=== PATIENT | female | born 1940 | race Caucasian/White ===

== ENCOUNTER 2018-01-05 09:48 | Outpatient (CLI) | payer MEDICARE ==
[2018-01-05 10:08] LABS: BASOPHILS % (AUTO) 0.5 %; EOSINOPHILS % (AUTO) 0.6 %; HGB - HEMOGLOBIN 13.8 g/dL (12.0-16.0); LYMPHOCYTES # (AUTO) 2.2 10^3/uL (1.5-3.5); LYMPHOCYTES % (AUTO) 24.8 %; MEAN CORPUSCULAR HEMOGLOBIN 31.7 pg (27.0-31.0); MEAN CORPUSCULAR HGB CONC 33.7 g/dL (32.0-36.0); MEAN CORPUSCULAR VOLUME 93.8 fL (81.0-99.0); MEAN PLATELET VOLUME 7.7 fL (7.9-10.8); MONOCYTES # (AUTO) 0.7 10^3/uL (0.0-1.0); NEUTROPHILS # (AUTO) 5.8 10^3/uL (1.5-6.6); NEUTROPHILS % (AUTO) 66.1 %; PLT - PLATELET COUNT 270 10^3/uL (130-450); RED BLOOD COUNT 4.37 10^6/uL (4.20-5.40); RED CELL DISTRIBUTION WIDTH 13.5 % (12.0-15.0); WHITE BLOOD COUNT 8.7 x10^3/uL (4.8-10.8)
[2018-01-05 10:27] LABS: ALBUMIN 4.3 g/dL (3.2-5.5); ALBUMIN/GLOBULIN RATIO 1.2 (1.0-2.2); ALKALINE PHOSPHATASE 43 IU/L (42-121); ALT ALANINE AMINOTRANSFERASE 14 IU/L (10-60); AST ASPARTATE AMINOTRANSFERASE 20 IU/L (10-42); BILIRUBIN,TOTAL 0.8 mg/dL (0.2-1.0); BUN - BLOOD UREA NITROGEN 18 mg/dL (6-20); CALCIUM 9.5 mg/dL (8.5-10.3); CARBON DIOXIDE - CO2 29 mmol/L (21-32); CHLORIDE 102 mmol/L (101-111); CHOL/HDL RATIO 3.5 (<4.4); CHOLESTEROL 175 mg/dL; CREATININE 0.9 mg/dL (0.4-1.0); GFR - MDRD 60 (>89); GLUCOSE 106 mg/dL (70-100); HDL CHOLESTEROL 50 mg/dL; LDL CHOLESTEROL,CALCULATED 107 mg/dL; LDL/HDL RATIO 2.1 (<4.4); SODIUM 142 mmol/L (135-145); TOTAL PROTEIN 7.8 g/dL (6.7-8.2); VLDL CHOLESTEROL 18 mg/dL
== END 2018-01-05 09:49 | disposition home or self-care (01) ==
LOC: LAB 09:48
PROVIDERS: ATTEND Family Medicine
DX: I10 Essential (primary) hypertension (principal)
CPT/HCPCS: 36415; 80053; 80061; 83721; 85025

== ENCOUNTER 2018-01-16 08:47 | Outpatient (CLI) | payer MEDICARE ==
--- NOTE | 2018-01-19 12:06 | DEXA Report ---
DEXA SCAN: 01/16/2018 INDICATION: Screening. TECHNIQUE: Dual energy x-ray absorptiometry (DXA) was performed on a [employer] system. Regions measured are the AP spine, femoral neck, and, if needed, forearm. COMPARISON: None. In accordance with the International Society for Clinical Densitometry (ISCD) guidelines, data from previous exams may be reanalyzed using current recommendations and techniques. This is done to allow a more accurate basis for comparison with the current study. FINDINGS: The data for the hip is as follows: REGION BMD (g/cm/cm) T-SCORE Z-SCORE Neck 1.021 -0.1 1.3 TOTAL 1.012 0.0 1.2 NOTE: The femoral neck or total proximal femur, whichever is lowest, is used for classification. The data for the forearm is as follows: REGION BMD (g/cm/cm) T-SCORE Z-SCORE 1/3 0.875 0.0 2.6 TOTAL 0.592 -1.4 1.3 NOTE: The 33% radius of the nondominant forearm is used for classification. IMPRESSION: THE WHO CLASSIFICATION FOR THE FEMORAL NECK BASED ON THE INTERNATIONAL REFERENCE STANDARD IS NORMAL. THE WHO CLASSIFICATION FOR THE RADIUS BASED ON THE INTERNATIONAL REFERENCE STANDARD IS OSTEOPENIA. THE FRACTURE RISK IS INCREASED. RECOMMENDATION: Patients with diagnosis of osteoporosis or osteopenia should have regular bone mineral density assessment. For those eligible for Medicare, routine testing is allowed once every 2 years. Testing frequency can be increased for patients who have rapidly progressing disease or for those who are receiving medical therapy to restore bone mass. COMMENT: World Health Organization (WHO) definitions for osteoporosis and osteopenia: NORMAL BMD: T-score at 1.0 or higher, fracture risk is low. OSTEOPENIA BMD: T-score between 1.0 and -2.5, fracture risk is increased. OSTEOPOROSIS BMD: T-score at 2.5 or lower, fracture risk high. National Osteoporosis Foundation recommends: 1. Obtain adequate dietary calcium (at least 1200 mg per day) and vitamin D (400 -800 international units per day). 2. Participate, as appropriate, in regular weightbearing and muscle- strengthening exercise. 3. Avoid tobacco use and reduce alcohol and caffeine intake. 4. For more detailed information see the website at www.NOF.org. MTDD
== END 2018-01-16 08:48 | disposition home or self-care (01) ==
LOC: DI 08:47
PROVIDERS: ATTEND Family Medicine
DX: Z78.0 Asymptomatic menopausal state (principal); M85.89 Other specified disorders of bone density and structure, multiple sites
CPT/HCPCS: 77080; 77081

== ENCOUNTER 2018-05-27 08:00 | Outpatient (CLI) | payer MEDICARE ==
[2018-05-27 15:44] LABS: BILIRUBIN,URINE NEGATIVE (NEGATIVE); GLUCOSE, URINE (UA) NEGATIVE (NEGATIVE); KETONES,URINE (UA) NEGATIVE (NEGATIVE); LEUKOCYTE ESTERASE, URINE MODERATE (NEGATIVE); NITRITE,URINE POSITIVE (NEGATIVE); OCCULT BLOOD,URINE NEGATIVE (NEGATIVE); PH,URINE 5.5 PH (5.0-7.5); PROTEIN,URINE NEGATIVE (NEGATIVE); UROBILINOGEN,URINE 0.2 (NORMAL) E.U./dL (NORMAL)
[2018-05-27 15:55] LABS: BACTERIA,URINE Many /HPF (None Seen); CLARITY,URINE CLOUDY (CLEAR); SQUAMOUS EPITHELIAL CELL,UR FEW Squamous (<= Few); WBC CLUMPS,URINE PRESENT
== END 2018-05-27 08:01 ==
LOC: LAB.R 08:00
PROVIDERS: ATTEND Family Medicine
DX: R35.0 Frequency of micturition (principal)
CPT/HCPCS: 81001; 87086

== ENCOUNTER 2018-06-03 14:32 | Emergency (ER) | payer MEDICARE ==
--- NOTE | 2018-06-03 15:30 | ED Physician Documentation ---
History of Present Illness - Stated complaint Stated Complaint: FEMALE - Chief complaint Chief Complaint: UTI - Additonal information Additional information: hx from pt 77 f states she went to see PMD Dr Jensen last week to ask about starting a new alzheimers med her brother was taking Dr Jensen did a urine sample and dx UTI and put pt on sulfa then later changed to keflex pt had shaking this AM but no chills or fever no abd pain no NVD no dysuria Dr Jensen advised to come to the ED and family states i am to call Dr Jensen for reason/ instructions Review of Systems Constitutional: denies: Fever, Chills Cardiac: denies: Chest pain / pressure Respiratory: denies: Dyspnea GI: denies: Nausea, Vomiting, Diarrhea : denies: Dysuria Musculoskeletal: denies: Back pain Neurologic: reports: Other (shaking earlier). denies: Headache Endocrine: denies: Easy bruising / bleeding Immunocompromised: denies: Immunocompromised PD PAST MEDICAL HISTORY - Present Medications Home Medications: Ambulatory Orders Medication Instructions Recorded Confirmed Home Medications Unobtainable 06/03/18 06/03/18 [HOME MEDICATIONS UNOBTAINABLE] - Allergies Allergies/Adverse Reactions: Allergies Allergy/AdvReac Type Severity Reaction Status Date / Time No Known Drug Allergies Allergy Verified 06/03/18 14:44 PD ED PE NORMAL - Vitals Vital signs reviewed: Yes - Cardiac Cardiac: RRR - Respiratory Respiratory: No respiratory distress, Clear bilaterally - Abdomen Abdomen: Soft, Non tender - Back Back: No CVA TTP - Neuro Neuro: Alert and oriented X 3 Results - Vitals Vitals: Vital Signs - 24 hr 06/03/18 14:39 Temperature 36.6 C Heart Rate 93 Respiratory 18 Rate Blood Pressure 144/93 H O2 Saturation 97 Oxygen O2 Source Room air - Labs Labs: Laboratory Tests 06/03/18 06/03/18 06/03/18 15:55 16:15 16:15 WBC 9.7 RBC 4.25 Hgb 13.7 Hct 40.7 MCV 95.7 MCH 32.1 H MCHC 33.5 RDW 13.0 Plt Count 259 MPV 7.8 L Neut # (Auto) 6.8 H Lymph # (Auto) 1.8 [place] # (Auto) 0.9 Eos # (Auto) 0.0 Baso # (Auto) 0.0 Absolute Nucleated RBC 0.00 Nucleated RBC % 0.0 Sodium 133 L Potassium 2.8 L Chloride 95 L Carbon Dioxide 26 Anion Gap 12.0 BUN 20 Creatinine 1.5 H Estimated GFR (MDRD) 33 L Glucose 98 Calcium 9.7 Urine Color YELLOW Urine Clarity CLEAR Urine pH 6.0 Ur Specific [place] <=1.005 Urine Protein NEGATIVE Urine Glucose (UA) NEGATIVE Urine Ketones NEGATIVE Urine Occult Blood NEGATIVE Urine Nitrite NEGATIVE Urine Bilirubin NEGATIVE Urine Urobilinogen 0.2 (NORMAL) Ur Leukocyte Esterase NEGATIVE Ur Microscopic Review NOT INDICATED Urine Culture Comments NOT INDICATED PD MEDICAL DECISION MAKING - ED course ED course: called Dr Jensen - pt was more confused than baseline at office visit so she got a UA and UA + for e coli, first txed with bactrim and then sensitivities indicates resisatnt to bactrim and sens to keflex so she has been changed to keflex, today daughter called office nurse to report that pt was shaking so office was concerned she was having fevers and rigors and becoming septic so advised pt to come to the ER - Dr Jensen requests blood work and another UA renal insuff may be due to bactrim - no longer taking - will encourage fluids and recheck next week K repleted keflex working MSE performed UTI improving renal insuff safe to dc home will dc - Sepsis Event Vital Signs: Vital Signs - 24 hr 06/03/18 14:39 Temperature 36.6 C Heart Rate 93 Respiratory 18 Rate Blood Pressure 144/93 H O2 Saturation 97 Oxygen O2 Source Room air Departure - Departure Disposition: Home, Self Care Clinical Impression: Renal insufficiency, Hypokalemia Condition: Good Instructions: ED UTI Cystitis Female Follow-Up: Ethel Jensen DO [Primary Care Provider] - Comments: Your urine infection is doing better on the keflex - finish that medication as prescribed You have some renal insufficiency - it is difficult to know why could could be a side effect of the bactrim you were taking - drink plenty of fluids and have the level checked next week And your potassium was a little bit low and was replaced in the ER
[2018-06-03 16:11] LABS: BILIRUBIN,URINE NEGATIVE (NEGATIVE); GLUCOSE, URINE (UA) NEGATIVE (NEGATIVE); KETONES,URINE (UA) NEGATIVE (NEGATIVE); LEUKOCYTE ESTERASE, URINE NEGATIVE (NEGATIVE); NITRITE,URINE NEGATIVE (NEGATIVE); OCCULT BLOOD,URINE NEGATIVE (NEGATIVE); PROTEIN,URINE NEGATIVE (NEGATIVE); UROBILINOGEN,URINE 0.2 (NORMAL) E.U./dL (NORMAL)
[2018-06-03 16:20] LABS: CLARITY,URINE CLEAR (CLEAR)
[2018-06-03 16:32] LABS: BASOPHILS % (AUTO) 0.5 %; EOSINOPHILS % (AUTO) 0.3 %; HGB - HEMOGLOBIN 13.7 g/dL (12.0-16.0); LYMPHOCYTES # (AUTO) 1.8 10^3/uL (1.5-3.5); MEAN CORPUSCULAR HEMOGLOBIN 32.1 pg (27.0-31.0); MEAN CORPUSCULAR HGB CONC 33.5 g/dL (32.0-36.0); MEAN CORPUSCULAR VOLUME 95.7 fL (81.0-99.0); MEAN PLATELET VOLUME 7.8 fL (7.9-10.8); MONOCYTES # (AUTO) 0.9 10^3/uL (0.0-1.0); MONOCYTES % (AUTO) 9.8 %; NEUTROPHILS # (AUTO) 6.8 10^3/uL (1.5-6.6); NEUTROPHILS % (AUTO) 70.4 %; PLT - PLATELET COUNT 259 10^3/uL (130-450); RED BLOOD COUNT 4.25 10^6/uL (4.20-5.40); WHITE BLOOD COUNT 9.7 x10^3/uL (4.8-10.8)
[2018-06-03 16:37] LABS: CALCIUM 9.7 mg/dL (8.5-10.3); CREATININE 1.5 mg/dL (0.4-1.0)
[2018-06-03] MEDS ORDERED: POTASSIUM CHLORIDE 20 MEQ TABLET PO STA (16:39)
[2018-06-03 17:13] VITALS: BP 121/77
== END 2018-06-03 17:21 | disposition home or self-care (01) ==
LOC: ED 14:32
DX: N28.9 Disorder of kidney and ureter, unspecified (principal); E87.6 Hypokalemia; N39.0 Urinary tract infection, site not specified
CPT/HCPCS: 36415; 80048; 81003; 85025; 87040; 99283; A9270; 81001; 87086

== ENCOUNTER 2018-06-11 10:23 | Outpatient (CLI) | payer MEDICARE ==
[2018-06-11 13:42] LABS: CALCIUM 9.7 mg/dL (8.5-10.3); CREATININE 1.2 mg/dL (0.4-1.0)
== END 2018-06-11 10:24 | disposition home or self-care (01) ==
LOC: LAB.WCP 10:23
PROVIDERS: ATTEND Family Medicine
DX: I10 Essential (primary) hypertension (principal)
CPT/HCPCS: 36415; 80048

== ENCOUNTER 2018-10-19 08:00 | Outpatient (CLI) | payer MEDICARE | END 2018-10-19 23:59 | disposition home or self-care (01) | LOC: LAB.R 08:00 | PROVIDERS: ATTEND Physician Assistant Medical | DX: N39.0 Urinary tract infection, site not specified (principal) | CPT/HCPCS: 87086; 87181 ==

== ENCOUNTER 2018-11-25 08:00 | Outpatient (CLI) | payer MEDICARE ==
[2018-11-25 12:12] LABS: BASOPHILS % (AUTO) 0.3 %; EOSINOPHILS # (AUTO) 0.1 10^3/uL (0.0-0.7); HGB - HEMOGLOBIN 13.3 g/dL (12.0-16.0); LYMPHOCYTES # (AUTO) 2.1 10^3/uL (1.5-3.5); LYMPHOCYTES % (AUTO) 24.1 %; MEAN CORPUSCULAR HEMOGLOBIN 31.9 pg (27.0-31.0); MEAN CORPUSCULAR HGB CONC 33.3 g/dL (32.0-36.0); MEAN CORPUSCULAR VOLUME 95.7 fL (81.0-99.0); MEAN PLATELET VOLUME 8.7 fL (7.9-10.8); MONOCYTES # (AUTO) 0.8 10^3/uL (0.0-1.0); MONOCYTES % (AUTO) 9.9 %; NEUTROPHILS # (AUTO) 5.5 10^3/uL (1.5-6.6); NEUTROPHILS % (AUTO) 64.7 %; PLT - PLATELET COUNT 269 10^3/uL (130-450); RED BLOOD COUNT 4.15 10^6/uL (4.20-5.40); RED CELL DISTRIBUTION WIDTH 12.9 % (12.0-15.0); WHITE BLOOD COUNT 8.5 x10^3/uL (4.8-10.8)
[2018-11-25 12:35] LABS: ALBUMIN 4.3 g/dL (3.2-5.5); ALBUMIN/GLOBULIN RATIO 1.3 (1.0-2.2); BILIRUBIN,TOTAL 0.6 mg/dL (0.2-1.0); CALCIUM 9.6 mg/dL (8.5-10.3); CREATININE 1.1 mg/dL (0.4-1.0); TOTAL PROTEIN 7.6 g/dL (6.7-8.2)
[2018-11-25 12:50] LABS: THYROID STIMULATING HORMONE 2.13 uIU/mL (0.34-5.60)
[2018-11-25 19:29] LABS: BILIRUBIN,URINE NEGATIVE (NEGATIVE); GLUCOSE, URINE (UA) NEGATIVE (NEGATIVE); KETONES,URINE (UA) NEGATIVE (NEGATIVE); LEUKOCYTE ESTERASE, URINE TRACE (NEGATIVE); NITRITE,URINE NEGATIVE (NEGATIVE); OCCULT BLOOD,URINE NEGATIVE (NEGATIVE); PH,URINE 6.5 PH (5.0-7.5); PROTEIN,URINE NEGATIVE (NEGATIVE); UROBILINOGEN,URINE 0.2 (NORMAL) E.U./dL (NORMAL)
[2018-11-25 20:09] LABS: AMORPHOUS SEDIMENT,UR Few /LPF; BACTERIA,URINE None Seen /HPF (None Seen); CLARITY,URINE SL. CLOUDY (CLEAR); RBC,URINE 0-5 /HPF (0-5); SQUAMOUS EPITHELIAL CELL,UR FEW Squamous (<= Few)
== END 2018-11-25 23:59 | disposition home or self-care (01) ==
LOC: LAB.WCP 08:00
PROVIDERS: ATTEND Family Medicine
DX: R41.3 Other amnesia (principal); N39.0 Urinary tract infection, site not specified
CPT/HCPCS: 36415; 80053; 81001; 82607; 84443; 85025; 87086; 87181

== ENCOUNTER 2018-12-24 14:48 | Outpatient (CLI) | payer MEDICARE ==
--- NOTE | 2018-12-24 17:44 | MRI Report ---
Reason: MEMORY LOSS Procedure Date: 12/24/2018 Accession Number: [id number] / [id number] Procedure: MRI - Brain W/O CPT Code: FULL RESULT: EXAM: MRI BRAIN WITHOUT CONTRAST EXAM DATE: 12/24/2018 04:18 PM. CLINICAL HISTORY: MEMORY LOSS. COMPARISON: None. TECHNIQUE: Multiplanar, multisequence T1-weighted and fluid-sensitive MR sequences of the brain were performed. Sequences optimized for routine evaluation. Other: None. IV Contrast: None. FINDINGS: The diffusion-weighted images are normal. There is no evidence of acute or subacute cerebral infarction. The images are degraded by motion. The FLAIR images demonstrate multiple punctate and confluent areas of T2 hyperintensity within the subcortical, deep, and periventricular white matter. This is consistent with a mild to moderate degree of chronic small vessel ischemia. There is enlargement of the lateral ventricles and the third ventricle but not out of proportion to the enlargement of the cerebral sulci. This is consistent with a mild degree of generalized volume loss. The corpus callosum is of normal size and configuration. The pituitary and sella are normal. The craniocervical junction is normal. The cerebral vascular flow voids are patent. The T2* sequence is normal. There is no evidence of subacute or chronic hemorrhage. There is mild mucosal thickening at the base of the right maxillary sinus. The bilateral parotid spaces exhibit normal signal intensity. The cerebral vascular flow voids are patent. IMPRESSION: 1. The images are degraded by extensive motion. 2. There is no evidence of acute or subacute cerebral infarction. 3. There is mild to moderate degree of chronic small vessel ischemia and mild degree of generalized volume loss. 4. There is no evidence of brain mass.
== END 2018-12-24 14:49 | disposition home or self-care (01) ==
LOC: DI 14:48
PROVIDERS: ATTEND Family Medicine
DX: I67.82 Cerebral ischemia (principal)
CPT/HCPCS: 70551

== ENCOUNTER 2019-01-10 17:40 | Outpatient (CLI) | payer MEDICARE ==
[2019-01-11] MEDS ORDERED: BUPIVACAINE 0.25%-EPI 1:200000 PF 30 ML VIAL ONE (14:48)
== END 2019-01-10 17:41 | disposition critical access hospital (66) ==
LOC: EMS 17:40
PROVIDERS: ATTEND Surgery
DX: M25.552 Pain in left hip (principal); W18.39XA Other fall on same level, initial encounter; Y92.008 Other place in unspecified non-institutional (private) residence as the place of occurrence of the external cause
CPT/HCPCS: A0425; A0427

== ENCOUNTER 2019-01-10 17:46 | Inpatient (IN) | payer MEDICARE ==
--- NOTE | 2019-01-10 18:36 | ED Physician Documentation ---
PD HPI LOWER EXT INJURY - Stated complaint Stated Complaint: GLF - Chief complaint Chief Complaint: Trauma Ext - History obtained from History obtained from: Patient - History of Present Illness PD HPI LOW EXT INJURY LOCATION: Left, Hip Type of injury: Fall (She states she is feeling okay and walking with her cane as usual and missed the step at the edge of a curb and fell to her left side. She denied hitting her head. She is not any blood thinners. She had pain in the left hip was unable to move and did not even attempt trying to get up. Family members were there and said she did not have any loss of consciousness.) Where injury occurred: Street Timing - onset: How many minutes ago (30), Today Timing - details: Abrupt onset, Still present Worsened by: Moving, Palpating Associated symptoms: No: Weakness, Numbness Contributing factors: No: Anticoagulated Similar symptoms before: Has not had sx before Recently seen: Not recently seen Review of Systems Constitutional: denies: Fever, Myalgias Nose: denies: Rhinorrhea / runny nose, Congestion Throat: denies: Sore throat Cardiac: denies: Chest pain / pressure, Palpitations Respiratory: denies: Dyspnea, Cough GI: denies: Abdominal Pain, Nausea, Vomiting, Diarrhea : denies: Dysuria Skin: denies: Rash, Lesions, Abrasion (s), Laceration (s) Neurologic: denies: Generalized weakness, Syncope, Altered mental status, Headache, Head injury PD PAST MEDICAL HISTORY - Past Medical History Cardiovascular: None Respiratory: None Neuro: Dementia, Headaches Psych: Anxiety Musculoskeletal: Osteoarthritis - Past Surgical History Ortho: Spine surgery HEENT: Tonsil/Adenoidectomy - Present Medications Home Medications: Ambulatory Orders Medication Instructions Recorded Confirmed Home Medications Unobtainable 06/03/18 06/03/18 [HOME MEDICATIONS UNOBTAINABLE] - Allergies Allergies/Adverse Reactions: Allergies Allergy/AdvReac Type Severity Reaction Status Date / Time No Known Drug Allergies Allergy Verified 01/10/19 17:59 - Social History Does the pt smoke?: No Smoking Status: Never smoker Does the pt drink ETOH?: No Does the pt have substance abuse?: No PD ED PE NORMAL - Vitals Vital signs reviewed: Yes - General General: Alert and oriented X 3, Well developed/nourished, Other (in pain due to left hip injury. ) - HEENT HEENT: Atraumatic, Moist mucous membranes - Neck Neck: Supple, no meningeal sign, No adenopathy - Cardiac Cardiac: RRR, No murmur - Respiratory Respiratory: Clear bilaterally - Abdomen Abdomen: Soft, Non tender - Back Back: No CVA TTP - Derm Derm: Normal color, Warm and dry - Extremities Extremities: No edema, No calf tenderness / cord, Other (She has pain at the left hip with any attempted range of motion and palpation. She has good pulses and color and capillary refill at the ankle and foot. She has good sensation and toe movement.) - Neuro Neuro: Alert and oriented X 3, video network engineer 2-12 intact, No motor deficit, No sensory deficit, Normal speech Eye Opening: Spontaneous Motor: Obeys Commands Verbal: Oriented GCS Score: 15 Results - Vitals Vitals: Vital Signs - 24 hr 01/10/19 01/10/19 01/10/19 17:53 18:00 19:31 Temperature 36.5 C Heart Rate 75 81 Respiratory 18 18 18 Rate Blood Pressure 123/63 113/75 O2 Saturation 99 90 L 01/10/19 19:35 Temperature Heart Rate Respiratory Rate Blood Pressure O2 Saturation 98 Oxygen O2 Source Nasal cannula - Labs Labs: Laboratory Tests 01/10/19 01/10/19 01/10/19 18:58 18:58 18:58 WBC 7.4 RBC 4.22 Hgb 13.5 Hct 39.2 MCV 92.8 MCH 31.9 H MCHC 34.3 RDW 12.7 Plt Count 227 MPV 7.3 L Neut # (Auto) 5.3 Lymph # (Auto) 1.3 L [place] # (Auto) 0.7 Eos # (Auto) 0.1 Baso # (Auto) 0.0 Absolute Nucleated RBC 0.00 Nucleated RBC % 0.0 PT 12.9 H INR 1.1 APTT 27.7 Sodium 139 Potassium 3.9 Chloride 99 L Carbon Dioxide 25 Anion Gap 15.0 H BUN 27 H Creatinine 1.2 H Estimated GFR (MDRD) 43 L Glucose 98 Calcium 9.5 Total Bilirubin 0.5 AST 20 ALT 18 Alkaline Phosphatase 59 Total Protein 7.3 Albumin 3.8 Globulin 3.5 Albumin/Globulin Ratio 1.1 Lipase 34 Blood Type Recheck 01/10/19 18:58 WBC RBC Hgb Hct MCV MCH MCHC RDW Plt Count MPV Neut # (Auto) Lymph # (Auto) [place] # (Auto) Eos # (Auto) Baso # (Auto) Absolute Nucleated RBC Nucleated RBC % PT INR APTT Sodium Potassium Chloride Carbon Dioxide Anion Gap BUN Creatinine Estimated GFR (MDRD) Glucose Calcium Total Bilirubin AST ALT Alkaline Phosphatase Total Protein Albumin Globulin Albumin/Globulin Ratio Lipase Blood Type Recheck AB POSITIVE - Rads (name of study) left hip xray Radiology: Prelim report reviewed, EMP read contemporaneously (Left intertrochanteric fracture with minimal displacement and no angulation.), See rad report PD MEDICAL DECISION MAKING - ED course Complexity details: reviewed results, considered differential, d/w patient, d/w family, d/w neuropsychology medical consultant (Mike Carvajal, who will consult; then Hospitalist. ) Departure - Departure Disposition: [facility] DC/Xfer Clinical Impression: Accidental fall Qualifiers: Encounter type: initial encounter Qualified Code(s): W19.XXXA - Unspecified fall, initial encounter Intertrochanteric fracture of left hip Qualifiers: Encounter type: initial encounter Fracture type: closed Fracture alignment: nondisplaced Qualified Code(s): S72.145A - Nondisplaced intertrochanteric fracture of left femur, initial encounter for closed fracture Condition: Stable Record reviewed to determine appropriate education?: Yes Discharge Date/Time: 01/10/19 20:34
[2019-01-10] MEDS ORDERED: MORPHINE 10 MG/ML VIAL IVP STA (18:41)
[2019-01-10] MEDS ORDERED: SODIUM CHLORIDE 0.9% 1,000 ML IV ONE (18:41)
[2019-01-10] MEDS ORDERED: ONDANSETRON 4 MG/2 ML VIAL IVP STA (18:41)
[2019-01-10 19:02] LABS: BASOPHILS % (AUTO) 0.5 %; EOSINOPHILS # (AUTO) 0.1 10^3/uL (0.0-0.7); EOSINOPHILS % (AUTO) 1.4 %; HGB - HEMOGLOBIN 13.5 g/dL (12.0-16.0); LYMPHOCYTES # (AUTO) 1.3 10^3/uL (1.5-3.5); LYMPHOCYTES % (AUTO) 17.7 %; MEAN CORPUSCULAR HEMOGLOBIN 31.9 pg (27.0-31.0); MEAN CORPUSCULAR HGB CONC 34.3 g/dL (32.0-36.0); MEAN CORPUSCULAR VOLUME 92.8 fL (81.0-99.0); MEAN PLATELET VOLUME 7.3 fL (7.9-10.8); MONOCYTES # (AUTO) 0.7 10^3/uL (0.0-1.0); MONOCYTES % (AUTO) 8.8 %; NEUTROPHILS # (AUTO) 5.3 10^3/uL (1.5-6.6); NEUTROPHILS % (AUTO) 71.6 %; PLT - PLATELET COUNT 227 10^3/uL (130-450); RED BLOOD COUNT 4.22 10^6/uL (4.20-5.40); RED CELL DISTRIBUTION WIDTH 12.7 % (12.0-15.0); WHITE BLOOD COUNT 7.4 x10^3/uL (4.8-10.8)
[2019-01-10 19:16] LABS: ALBUMIN 3.8 g/dL (3.2-5.5); ALBUMIN/GLOBULIN RATIO 1.1 (1.0-2.2); BILIRUBIN,TOTAL 0.5 mg/dL (0.2-1.0); CALCIUM 9.5 mg/dL (8.5-10.3); CREATININE 1.2 mg/dL (0.4-1.0); TOTAL PROTEIN 7.3 g/dL (6.7-8.2)
[2019-01-10 19:33] LABS: INR 1.1 (0.8-1.2); PT - PROTHROMBIN TIME 12.9 secs (9.9-12.6)
--- NOTE | 2019-01-10 19:38 | XRAY Report ---
Reason: fall with left hip pain Procedure Date: 01/10/2019 Accession Number: [id number] / [id number] Procedure: XR - Hip w/Pelvis 2-3V LT CPT Code: FULL RESULT: EXAM: LEFT HIP RADIOGRAPHY EXAM DATE: 01/10/2019 07:25 PM. CLINICAL HISTORY: Fall with left hip pain. COMPARISON: None. TECHNIQUE: 2 views. FINDINGS: Bones: There is left intertrochanteric femur fracture. Joints: No evidence of dislocation. Soft Tissues: No unexpected soft tissue findings. IMPRESSION: There is displaced left intertrochanteric femur fracture. RADIA
[2019-01-10 19:41] LABS: PARTIAL THROMBOPLASTIN TIME 27.7 secs (24.9-33.3)
--- NOTE | 2019-01-10 19:51 | XRAY Report ---
Reason: fall Procedure Date: 01/10/2019 Accession Number: [id number] / [id number] Procedure: XR - Chest 1 View X-Ray CPT Code: 25224 FULL RESULT: EXAM: CHEST RADIOGRAPHY EXAM DATE: 01/10/2019 07:03 PM. CLINICAL HISTORY: Fall. COMPARISON: None. TECHNIQUE: 1 view. FINDINGS: Lungs/Pleura: Online for somewhat low. No evidence of lobar consolidation or effusion. No pneumothorax. Mediastinum: There is mild cardiomegaly. Right paratracheal opacity is probably prominent cervical vasculature. Other: None. IMPRESSION: No acute intrathoracic plain film abnormality. RADIA
[2019-01-10] MEDS ORDERED: ONDANSETRON 4 MG/2 ML VIAL IVP PRN (19:52)
[2019-01-10] MEDS ORDERED: ONDANSETRON ODT 4 MG TABLET TL PRN (19:52)
[2019-01-10 20:09] LABS: BILIRUBIN,URINE NEGATIVE (NEGATIVE); GLUCOSE, URINE (UA) NEGATIVE (NEGATIVE); KETONES,URINE (UA) NEGATIVE (NEGATIVE); LEUKOCYTE ESTERASE, URINE NEGATIVE (NEGATIVE); NITRITE,URINE NEGATIVE (NEGATIVE); OCCULT BLOOD,URINE NEGATIVE (NEGATIVE); PH,URINE 7.5 PH (5.0-7.5); PROTEIN,URINE NEGATIVE (NEGATIVE); UROBILINOGEN,URINE 0.2 (NORMAL) E.U./dL (NORMAL)
[2019-01-10 20:13] LABS: CLARITY,URINE CLEAR (CLEAR)
[2019-01-10] MEDS: HYDROmorphone 1 MG/ML CARPUJECT IVP PRN (20:56)
[2019-01-10] MEDS: SODIUM CHLORIDE 0.9% 1,000 ML IV SCH (20:56)
[2019-01-10] MEDS: SODIUM CHLORIDE FLUSH 0.9% 10 ML SYRINGE IVP PRN (20:56)
--- NOTE | 2019-01-11 00:42 | HISTORY & PHYSICAL EXAMINATION ---
DATE OF SERVICE: 01/10/2019 Physician: Marilyn Patel MD PRIMARY CARE PROVIDER: Rosanna Jensen DO. ADMITTING PROVIDER: Marilyn Patel MD. CHIEF COMPLAINT: Fall with hip pain. HISTORY OF PRESENT ILLNESS: The patient is an 78-year-old female who does not have osteoporosis according to DEXA scans. She had a DEXA scan in 2006 that had a hip score of positive 1.7, and a lumbar score of positive 0.4. She was restudied in January 2018 and her hip was now anywhere from 0.0 to -0.1, and forearm was -1.4. She has been on calcium, vitamin D. Her main problem over the last few months, has been that of memory loss. It has been insidious and progressive and bringing quite a bit of heartache and anxiety to the patient. She just had an MRI done 12/24/2018 in this evaluation. She has been referred to the [facility] for consultation. Anxiety will make the memory loss worse. She gets angry with her because she feels that he is not telling her things, but they will have had conversations and she has no memory of what she was told. She has declined donepezil for memory loss treatment because of the side effects and cost. In May of last year, she was put on citalopram to help with the memory loss, but she became sleepier. Was sleeping all day long, seemed to have more balance issues. It was not helping the anxiety. So they stopped it two weeks ago. Her affect has been better. She has been a little bit more joyful, but she is always fearful of falling. She does use a walker in her home, and uses a cane preferentially. In addition to the memory loss, she has chronic back pain from spinal stenosis and even after surgery. She was walking on unsteady ground today. She was using a cane, and as the cane sunk into the gravel, she lost her balance and then fell onto cement and had immediate left hip pain. She was unable to weight bear. She was brought into the emergency room. She was evaluated by the emergency room physician where she is afebrile, normotensive, has 90% saturation on room air, pulse rate is normal, respiration is normal. The main findings on physical exam is an elderly, anxious, confused, female, who cries out in pain because of movement of her left leg. From a preoperative risk assessment, she has not had any angina. She has no history of valvular heart disease. No arrhythmias. No myocardial infarction. She has no dyspnea on exertion, edema or orthopnea. She has had no change in bowel habits or lung complaints. She has chronic kidney disease, stage III, and that has been stable. She is now admitted into the hospital for a left intertrochanteric femur fracture. Dr. Carvajal, orthopedic surgery, has requested the patient be admitted to our service and he will consult. PAST MEDICAL HISTORY 1. Memory loss as noted above. MRI 12/24/2018. B12 and thyroid have been normal. MRI shows motion artifact, mild ischemic changes, but no tumors or previous strokes. She has been referred to [facility] for neurology evaluation. 2. Anxiety. Temporarily treated with citalopram from May 2018 until two weeks ago. 3. Tonsillectomy. 4. Spinal stenosis. She underwent three-level laminectomy in March 2015. She was at [facility] for over a month. 5. Nausea. She was treated as gastritis, but quite a bit of her somnolence, gait ataxia, and nausea can be attributed to her SSRI. She was put on an H2 adrienne. 6. Right hydronephrosis found incidentally in January 2015 during evaluation for her surgery. 7. Diarrhea, resulting in colonoscopy December 2006. No colitis. No polyps. 8. G4, P4. ALLERGIES: NO KNOWN DRUG ALLERGIES. MEDICATIONS: Not listed through the ER. We will have to go to her outpatient clinic record and get that list. She is on HCTZ, calcium, Vitamin D. Pepcid. SOCIAL HISTORY: She never smoked, never drank. She was not born on the [place], but came to live in [place] and go to [employer] because her dad was in the [place]. She met her when they were in high school, and they have been for 60 years. 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 They raised four param daughters, who all live off [place]. FAMILY HISTORY: Dad at age 86. He had Alzheimer's, colon polyp with cancer. Mom at age 87 with Alzheimer's dementia. One brother in his 30s. One brother has severe Alzheimer's for the last 3 years. Her four daughters are healthy. REVIEW OF SYSTEMS CONSTITUTIONAL: There has been no recent weight changes, fevers, sweats, but she has been unusually fatigued, sleeper over the last few months. Some of it is attributed to the citalopram, but family is worried something else is going on. The patient herself also keeps on feeling like "something terrible is happening." ENT: Has problems seeing things that are close up, but no cataracts or glaucoma. Slightly deaf. No problems with swallowing or dentition. No facial droop, aphasia, dysphagia. PULMONARY: Family denies coughing, wheezing, shortness of breath, chest congestion. CARDIAC: They denies edema or orthopnea. Her endurance is definitely diminished over the last several months, but they attribute it over chronic back pain. They do not feel that she is having lung or heart problems that make her not want to do anything. It is mainly her fear of falling, and anxiety. GASTROINTESTINAL: Occasional constipation. Diarrhea went away after 2006. Colonoscopies are up-to-date. No blood in her stool or urine as far as family knows. GENITOURINARY: Recurrent UTIs over the last few months. Associated with urgency, frequency. She has not been evaluated for atrophic vaginitis. JOINTS: Chronic stiffness in hips, knees, hands. Back is the biggest problem for her on a daily basis. That is unchanged for several months now. SKIN: No new lesions, rashes, or pruritus. PSYCHIATRIC: Increasing anxiety and confusion over the last several months, if not two years. Denies suicidal ideation, family does not describe delusions or hallucinations. CENTRAL NERVOUS SYSTEM: Balance has become an issue. She uses a cane preferentially, but rarely uses a walker. Memory loss has become a problem. No seizures or syncope. PREVIOUS LEVEL OF FUNCTION: She ambulates with a cane because she fears falling. Rarely will use a walker. Able to feed and dress self, needs help with bathing. handles finances but daughters are starting to do more and more for both of them. PHYSICAL EXAMINATION VITAL SIGNS: On examination, blood pressure is 113/75, respirations 18. She is 98% saturated on 3 liters and 90% on room air. GENERAL: Exam reveals her to be a moaning, elderly female, who is 5 feet 6 inches tall and 90.71 kg. She opens her eyes to my voice, and has occasional jerking and spasming with crying out when her leg is moved. But she is asleep with her opiate medicine. ENT: Dry lips, but pink oral mucosa. Pupils sluggish, but reactive. Sclerae are nonicteric. Slack faces, no facial asymmetry. Voice is low and hoarse when she talks. NECK: Without JVD, goiter or bruits. LUNGS: Clear to auscultation and percussion with slow, shallow respirations and diminished breath sounds diffusely. CARDIAC: Regular rate and rhythm with PMI normally placed and no murmurs, rubs or gallops. ABDOMEN: Soft, nontender. No organomegaly. Hypoactive bowel sounds. EXTREMITIES: Left leg outwardly rotated, and she immediately starts to cry at the idea that I may move her leg. I reassured her that I am not. She does not have any clubbing, cyanosis, or edema in either foot. NEUROLOGIC: She is oriented to place. She knows who her daughters are, two at the bedside, and she knows who her is. She keeps forgetting she broke her hip, but acknowledges that the agonizing pain is present. When she is calm, she appears to follow one-step command. But as the pain escalates, she gets more and more emotional. No focal deficits. I am not seeing tremors, just a jerking expected movement as she falls back asleep. LABORATORY DATA: Sodium 139, potassium 3.9, anion gap 15, BUN 27, creatinine 1.2, GFR 43. Glucose 98. Liver enzymes normal. INR is 1.1. White cell count 7.4, hemoglobin 13.5, hematocrit 39.2. Platelets 227. Urinalysis is negative for protein, glucose, ketones, blood, nitrites, leukocyte esterase. IMAGING: Chest x-ray has no acute intrathoracic plain film abnormality. Hip pelvis plain film has the displaced left intertrochanteric femur fracture. ASSESSMENT/PLAN 1. Intertrochanteric femur fracture after a mechanical fall. PLAN - Inpatient admission. - Attestation that the patient will be admitted less than 96 hours. - Orthopedic consult with Dr. Carvajal already ordered and Dr. Carvajal has been informed by the ER - Type and screen already ordered. - INR already ordered. - N.p.o. after midnight. - Surgery is planned for tomorrow. - Family has identified that they would like her to go to either [place] or even [place] for rehab. While it would be very difficult for their father to go see mom there, the family lives in the [facility] and they feel that it would be much easier for family to look in on her and take care of her. I asked them to please sit down with the family conference, all of them decide, and take their father's input and go from there. 2. Preop cardiovascular risk assessment. PLAN: Revised cardiac index is 3.9% with 0 points and a class 1 risk. 3. Memory loss. PLAN: The patient is already undergoing outpatient evaluation. She has had an MRI. Appropriate lab test done. Next step is to refer to neurology and that has been done. She will keep that outpatient appointment. 4. Osteoporosis by definition. Although DEXA scan is normal, a fall with fracture gives you diagnosis of osteoporosis. In this woman's case, I do not think I would do anything more than calcium with vitamin D. I think she landed on cement, and landed with enough force to cause the fracture. I will leave it to Dr. Carvajal to decide if this patient is a candidate for Actonel or Reclast, but continue calcium and vitamin D. 5. Chronic back pain. She is intolerant of opiates in the outpatient setting. It just made her more nauseated, and more confused. We will try and avoid opioid overuse while in hospital. Unfortunately, she has chronic kidney disease and will need to avoid nonsteroidals. 6. Chronic kidney disease, stage III. Stable. In preparation for surgery, an IV has been started and IV fluids are running. We will recheck BMP tomorrow. 7. FULL CODE status at this time. Her states that they do have an advanced directive at home. While they do not want any unusual measures to keep her alive in the event of a life threatening terminal illness, they do want everything else done. But he is not quite clear about the language of the advanced directive and promises to go home and bring it back for us to include it into our medical records. 8. Venous thrombosis prophylaxis is MARLEE jeanniee at this time. In the postoperative setting would recommend Lovenox. She will need reduced dosage because of chronic kidney disease. 9. Fatigue in the setting of memory loss, ataxia, anxiety. Anemia is not severe and TSH/B12 levels have been normal in the past. Check ECHO. TD: 01/10/2019 22:54 RAGHAVENDRA
[2019-01-11] MEDS: SODIUM CHLORIDE FLUSH 0.9% 10 ML SYRINGE IVP SCH ×3 (01:28→14:36)
[2019-01-11] MEDS: HYDROmorphone 1 MG/ML CARPUJECT IVP PRN ×5 (01:38→21:50)
[2019-01-11 05:13] LABS: BASOPHILS % (AUTO) 0.2 %; EOSINOPHILS # (AUTO) 0.1 10^3/uL (0.0-0.7); EOSINOPHILS % (AUTO) 0.8 %; HGB - HEMOGLOBIN 12.6 g/dL (12.0-16.0); LYMPHOCYTES # (AUTO) 1.1 10^3/uL (1.5-3.5); LYMPHOCYTES % (AUTO) 12.8 %; MEAN CORPUSCULAR HEMOGLOBIN 31.2 pg (27.0-31.0); MEAN CORPUSCULAR HGB CONC 32.9 g/dL (32.0-36.0); MEAN CORPUSCULAR VOLUME 94.8 fL (81.0-99.0); MEAN PLATELET VOLUME 7.7 fL (7.9-10.8); MONOCYTES # (AUTO) 0.8 10^3/uL (0.0-1.0); MONOCYTES % (AUTO) 9.2 %; NEUTROPHILS # (AUTO) 6.7 10^3/uL (1.5-6.6); PLT - PLATELET COUNT 226 10^3/uL (130-450); RED BLOOD COUNT 4.05 10^6/uL (4.20-5.40); RED CELL DISTRIBUTION WIDTH 12.8 % (12.0-15.0); WHITE BLOOD COUNT 8.7 x10^3/uL (4.8-10.8)
[2019-01-11 05:24] LABS: CALCIUM 8.9 mg/dL (8.5-10.3); CREATININE 1.1 mg/dL (0.4-1.0)
[2019-01-11] MEDS: SODIUM CHLORIDE 0.9% 1,000 ML IV SCH (06:11)
[2019-01-11] MEDS: POLYETHYLENE GLYCOL 3350 17 GM PACKET PO SCH (07:02)
--- NOTE | 2019-01-11 11:41 | MISCELLANEOUS PROVIDER NOTE ---
Miscellaneous Provider Note - - Note: HPI: The patient is a pleasant 78-year-old female With a history of chronic kidney disease, chronic back pain, memory loss, presents to the ED having sustained a mechanical fall. Patient was walking on unsteady ground on the day of admission as she was using a cane and has a cane sunk into the gravel she lost her balance and then fell onto cement and had immediate left hip pain. She was unable to weight-bear and brought to the emergency room for further evaluation management and treatment she was essentially hemodynamically stable anxious and confused and crying out in pain. Patient's preoperative risk assessment shows that she has not had any angina with no history of valvular heart disease arrhythmias MIs respiratory complaints pulmonary issues symptomatic hypotension or hypertension with no changes in her chronic kidney disease that is currently stage II and has been stable. Patient who does not have osteoporosis according to the DEXA scans back in 2006 that had a hip score of +1.7 and lumbar score +0.4 she was restudied in January 2018 and her hip was now anywhere from 0.12 is -0.1 and forearm was -1.4. She has been on calcium and vitamin D supplementations. Patient presented with a mechanical fall from ground-level striking her left hip and subsequently had a left femur intertrochanteric fracture on x-rays. Patient's previous problems over the last few months has been a memory loss/decline with mild cognitive deficits. It has been insidious and p rogressive and bring quite a bit of cardiac anxiety to the patient. She just had a MRI on 12/24/18 and this evaluation. She has been referred to the [facility] clinic for consultation. Anxiety will make the memory loss worse. She gets angry with her because she feels that he is not telling her things, but they will have had conversations and she has no memory of what she was told. She has declined Aricept for memory loss treatment because of the side effects and cost. In May 2018 she was put on Celexa to help with her memory loss but she became sleepier. Was sleeping all day long seeming to have more balance issues. It was not helpful for her anxiety. So they stopped it 2 weeks ago. Her affect has been improving, she has been a little bit more joyful but is always fearful of falling. She does use a walker in her home and uses a cane preferentially. In addition to the memory loss she has chronic back pain from spinal stenosis and even after surgery. Patient to be admitted for acute left intertrochanteric femur fracture and likely will have surgical correction by Dr. Carvajal orthopedic surgery. Subjective: Patient was seen at bedside complaining of left hip and left lower extremity pain, able to verbalize well has some dementia with no behavioral disturbance. Patient's family was at bedside and conveying patient's medical conditions. Next Objective: Vital signs are hemodynamically stable afebrile nontachypneic non- tachycardic non-hypoxemic. No acute respiratory distress General: Patient has memory deficits and underlying dementia. HEENT: NCAT. No buccal lesions. Dry mucous membranes. Neck: No JVD no bruits no lymphadenopathy. No thyromegaly. CV/lungs: RRR. S1-S2 within normal limits no murmurs gallops clicks or rubs. CTA BL Abdomen: Soft nontender nondistended positive bowel sounds all quadrants no HSM Extremities/skin: Patient has limited range of motion to the left lower extremity is unable to externally or internally rotate along with pain on manipulation. Neuro: Grossly intact. Patient has underlying dementia. Unable to assess psychiatric exam however there is no mention of psychomotor retardation. DTRs are bilateral symmetric. Sensory motor conserved. Next Labs: Reviewed Imaging studies: Xrays pelvis/femur: shows left intertrochanteric fracture Chest x-ray: Shows no acute cardia pulmonary process Assessment/plan: 1. Intertrochanteric femur fracture to the left after sustaining a mechanical fall from ground-level. Patient to have surgery today for left femur fracture will be typed and screened and INR has been ordered along with n.p.o. status patient's medical conditions are essentially stable with no underlying respiratory or cardiac issues. Patient likely will have postop PT assessment for detention versus placement. Family has identified that they would like to go to either [facility] or [facility] or even [facility] for rehab. While it would be very difficult for their father to go see mom there the family lives in the [facility] and they feel that it would be much easier for family to look in on her and take care of her. 2. Dementia with some memory loss and cognitive impairment. The patient is already undergoing outpatient evaluation. She has had an MRI. Appropriate lab tests were performed. Next step is to refer for to neurology and that has been already done. She will keep that outpatient appointment and will continue with neurological status postoperatively. 3. Osteoporosis by definition. Although DEXA scan is normal a fall with fracture gives you a diagnosis of osteoporosis. In this woman's case I do not think I would do anything more than calcium vitamin D supplementation. I think she might of landed on ground level cement and enough force to cause a traumatic fracture with no pathological fracture noted. Patient is a candidate for Actonel or Reclast but continue calcium and vitamin D supplementation while being hospitalized. 4. Chronic back pain. She is intolerant to opiates in the outpatient setting. Patient will likely need a nonnarcotic or either Toradol plus or minus Ultram for pain control. However patient does have chronic kidney disease stage II and will likely need to avoid NSAIDs and nephrotoxic agents. 5.Fatigue in the setting of memory loss attacks and anxiety. Anemia is not severe and TSH/B12 levels have been normal in the past. Patient has an echocardiogram to be followed. 6. Chronic kidney disease stage II and when an exacerbation that may have been perceived as stage III however patient's baseline creatinine hovers in the 0.9 to the 1.1 range, Continue with IV fluids hydration perfusing of kidneys avoidance of nephrotoxic agents and electrolyte repletion preop Intra-Op and then postop. 7. Advanced care planning education counseling patient currently had a full code and has discussed medical condition with family to anticipate postoperative care plan of care ends medication management as it pertains to her medical conditions. DVT/GI prophylaxis to continue
--- NOTE | 2019-01-11 13:29 | CONSULTATION NOTE ---
Referring Provider Name of Referring Provider:: Robert Carroll MD Consult Date: 01/11/19 Chief Complaint - Chief Complaint Chief Complaint: Asked to evaluate patient for left intertrochanteric hip fracture History of Present Illness - History Obtained From History obtained from: Patient, , daughter, chart, Dr. Carroll - History of Present Illness HPI Comment/Other: Patient reportedly in her usual state of health until 01/10/2019 when she sust ained a fall. The patient reportedly does use a cane but sometimes forgets to actually use the cane and fell. Patient's daughter says the encourage her to try to use a walker but she does not do so. Patient reportedly had pain in the hip and was brought to the emergency department where she was found to have an intertrochanteric hip fracture. She now presents for further evaluation and orthopedic consultation. Patient is accompanied by her daughter and . They note that she is somewhat demented though she does make her own medical decisions at this time. History - Past Medical History Cardiovascular: reports: None Respiratory: reports: None Neuro: reports: Dementia, Headaches Psych: reports: Anxiety Musculoskeletal: reports: Osteoarthritis - Past Surgical History Ortho: reports: Spine surgery HEENT: reports: Tonsil/Adenoidectomy Meds/Allgy - Home Medications Home Medications: Ambulatory Orders Medication Instructions Recorded Confirmed Home Medications Unobtainable 06/03/18 06/03/18 [HOME MEDICATIONS UNOBTAINABLE] - Allergies Allergies/Adverse Reactions: Allergies Allergy/AdvReac Type Severity Reaction Status Date / Time No Known Drug Allergies Allergy Verified 01/10/19 17:59 Exam - Vital Signs Vital Signs: Vital Signs x48h Temp Pulse Resp BP Pulse Ox 01/11/19 11:13 37 C 84 12 115/71 96 01/11/19 08:40 36.7 C 91 14 124/71 97 - Physical Exam Comments/Other: Patient is a well-developed 78-year-old female in no obvious distress. She is somewhat oriented but not a and O x3. She is examined in her hospital bed. Left lower extremity she is able to initiate flexion extension of ankle and initiate knee flexion extension thigh calf soft nontender skin overlying the thigh and hip is intact. No erythema or streaking appreciated. Her left lower extremity is somewhat shortened and externally rotated. Conclusion/Plan - Diagnosis Diagnosis: Left intertrochanteric hip fracture. - Plan Plan: Patient is an 78-year-old female with multiple medical history including dementia. She is a left intertrochanteric hip fracture. I discussed with her and her and daughter the injury we yudith a diagram. Discussed the natural history of this type of injury and the relevant literature and the potential short and long-term problems with this injury. Talked about potential operative risks including but not limited to infection wound problems nerve or blood vessel injury weakness pain stiffness decreased range of motion decreased strength worsening of her condition in any manner, iatrogenic injury, bleeding, blood loss, blood clot blood clot embolus positioning complications anesthetic complications including potential major cardiovascular neurovascular complications which could be life-threatening. We talked about other associated concerns with this injury and being immobile such as pneumonia bedsores blood clots. Talked about potential inability to get back to her previous function in the overall mortality associated in the next 1- 2 years. They verbalized understanding above and they verbalized her wish to proceed with operative treatment informed consent was given. We talked about preoperative and postoperative expectations and instructions we will plan for scheduling her surgery pending appropriate medical risk stratification and optimization. They will notify us if there is further questions in the meantime. They are verbalize agreement satisfaction above plan. proposed procedure is left hip cephalo-medullary nail placement/open reduction internal fixation. Hospitalist H&P is noted. - Lab Results Fish Bones: 01/11/19 04:49 01/11/19 04:49
--- NOTE | 2019-01-11 14:29 | ANESTHESIA ---
Pre-Anesthesia VS, & Labs - Diagnosis Diagnosis Left intertrochanteric hip fracture. - Procedure Left hip pinning Vital Signs: Temp Pulse Resp BP Pulse Ox 37 C 84 12 115/71 96 01/11/19 11:13 01/11/19 11:13 01/11/19 11:13 01/11/19 11:13 01/11/19 11:13 Height 5 ft 6 in Weight (kg) 90.718 kg Body Mass Index 32.3 - NPO >8 hours - Is Patient ?: No - Lab Results Current Lab Results: Laboratory Tests 01/11/19 04:49: Sodium 138, Potassium 4.0, Chloride 102, Carbon Dioxide 25, Anion Gap 11.0, BUN 24 H, Creatinine 1.1 H, Estimated GFR (MDRD) 48 L, Glucose 109 H, Calcium 8.9 01/11/19 04:49: WBC 8.7, RBC 4.05 L, Hgb 12.6, Hct 38.4, MCV 94.8, MCH 31.2 H, MCHC 32.9, RDW 12.8, Plt Count 226, MPV 7.7 L, Neut # (Auto) 6.7 H, Lymph # (Auto) 1.1 L, [place] # (Auto) 0.8, Eos # (Auto) 0.1, Baso # (Auto) 0.0, Absolute Nucleated RBC 0.00, Nucleated RBC % 0.0 01/10/19 20:10: Blood Type AB POSITIVE, Antibody Screen NEGATIVE 01/10/19 18:58: Blood Type Recheck AB POSITIVE 01/10/19 18:58: Sodium 139, Potassium 3.9, Chloride 99 L, Carbon Dioxide 25, Anion Gap 15.0 H, BUN 27 H, Creatinine 1.2 H, Estimated GFR (MDRD) 43 L, Glucose 98, Calcium 9.5, Total Bilirubin 0.5, AST 20, ALT 18, Alkaline Phosphatase 59, Total Protein 7.3, Albumin 3.8, Globulin 3.5, Albumin/Globulin Ratio 1.1, Lipase 34 01/10/19 18:58: PT 12.9 H, INR 1.1, APTT 27.7 01/10/19 18:58: WBC 7.4, RBC 4.22, Hgb 13.5, Hct 39.2, MCV 92.8, MCH 31.9 H, MCHC 34.3, RDW 12.7, Plt Count 227, MPV 7.3 L, Neut # (Auto) 5.3, Lymph # (Auto) 1.3 L, [place] # (Auto) 0.7, Eos # (Auto) 0.1, Baso # (Auto) 0.0, Absolute N ucleated RBC 0.00, Nucleated RBC % 0.0 Fish Bones: 01/11/19 04:49 01/11/19 04:49 Home Medications and Allergies Active Medications Acetaminophen (Tylenol) 650 mg PO Q4HR PRN PRN Reason: Pain 1 to 4 Hydromorphone HCl (Dilaudid Inj Carp) 1 mg IVP Q2HR PRN PRN Reason: Pain 8 to 10 Last Admin: 01/11/19 09:58 Dose: 1 mg Sodium Chloride (Normal Saline 0.9%) 1,000 mls @ 100 mls/hr IV .Q10H [facility] Last Admin: 01/11/19 06:11 Dose: 100 mls/hr Ondansetron HCl (Zofran Inj) 4 mg IVP Q6HR PRN PRN Reason: Nausea / Vomiting Ondansetron HCl (Zofran Odt) 4 mg TL Q6HR PRN PRN Reason: Nausea / Vomiting Oxycodone HCl (Roxicodone) 5 mg PO Q4HR PRN PRN Reason: Pain 5 to 7 Polyethylene Glycol (Miralax) 17 gm PO DAILY [facility] Last Admin: 01/11/19 07:02 Dose: Not Given Sodium Chloride (Normal Saline Flush 0.9%) 10 ml IVP PRN PRN PRN Reason: NEEDED PER PROVIDER ORDERS Last Admin: 01/10/19 20:56 Dose: 10 ml Sodium Chloride (Normal Saline Flush 0.9%) 10 ml IVP 0100,0900,1700 [facility] Last Admin: 01/11/19 10:11 Dose: Not Given Home Medications Unobtainable [HOME MEDICATIONS UNOBTAINABLE] 06/03/18 Allergies/Adverse Reactions: Allergies Allergy/AdvReac Type Severity Reaction Status Date / Time No Known Drug Allergies Allergy Verified 01/10/19 17:59 Anes History & Medical History - Anesthetic History Anesthesia Complications: reports: Other-see comment (Post op dementia and confusion) Family history of Anesthesia Complications: Denies Family history of Malignant Hyperthermia: Denies - Medical History Cardiovascular: reports: None Pulmonary: reports: None Gastrointestinal: reports: Other (Frequent nausea) Urinary: reports: None Neuro: reports: Dementia, Headaches Musculoskeletal: reports: Osteoarthritis Endocrine/Autoimmune: reports: None Blood Disorders: reports: None Skin: reports: None Smoking Status: Never smoker Psychosocial: reports: Depression - Surgical History Eyes Ears Nose Throat (EENT): Tonsil/Adenoidectomy Orthopedic: Spine surgery Exam General: Other (Disoriented) Dental: WNL Mouth Openin Fingerbreadth Neck Mobility: Reduced Mallampati classification: II Thyromental Distance: 4-6 cm Respiratory: Lungs clear Cardiovascular: Regular rate Mental/Cognitive Status: Confused, Oriented to name Cognitive Status: Dementia Plan Anesthesia Type: General Consent for Procedure(s) Verified and Reviewed: Yes Code Status: Attempt Resuscitation ASA classification: 2-Mild systemic disease Is this case an emergency?: Yes
[2019-01-11] MEDS ORDERED: LACTATED RINGERS 1,000 ML IV ONE ×3 (16:05→17:49)
[2019-01-11] MEDS ORDERED: ONDANSETRON 4 MG/2 ML VIAL IVP ONE (16:30)
[2019-01-11] MEDS ORDERED: LIDOCAINE-MPF 2% 5 ML VIAL IM ONE (16:30)
[2019-01-11] MEDS ORDERED: PROPOFOL 200 MG/20 ML VIAL IVP ONE (16:30)
[2019-01-11] MEDS ORDERED: fentaNYL 100 MCG/2 ML VIAL IVP ONE (16:30)
[2019-01-11] MEDS ORDERED: ceFAZolin 2 GM/50 ML 2 GM/50 ML BAG IV ONE (16:30)
[2019-01-11] MEDS ORDERED: BUPIVACAINE 0.25%-EPI 1:200000 PF 10 ML VIAL SUBQ ONE ×2 (16:48)
[2019-01-11] MEDS ORDERED: fentaNYL 100 MCG/2 ML VIAL ONE (18:24)
[2019-01-11] MEDS ORDERED: ACETAMINOPHEN 1,000 MG/100 ML 100 ML IV ONE (18:30)
[2019-01-11] MEDS ORDERED: ONDANSETRON 4 MG/2 ML VIAL IVP PRN (18:34)
--- NOTE | 2019-01-11 18:34 | IMMEDIATE POSTOPERATIVE NOTE ---
Immediate Postoperative Note - Procedure Note Procedure Date: 01/11/19 Pre-Op Diagnosis: LEFT IT FEMUR FX Procedure: LEFT FEMUR SHORT CEPHALOMEDULLARY NAIL PLACEMENT Post-Op Diagnosis: SAME Primary Surgeon: ARIANNE Anesthesia Type: General LMA, Local Findings: comminuted left IT fracture, post op leg length alignment rotation within 5mm/5deg Complications: No complications Plan of Care: pt tolerated procedure well. instrument and sponge counts correct pt transferred to in stable condition.
[2019-01-11] MEDS: NS W/20 MEQ KCL 1,000 ML IV SCH (19:16)
[2019-01-11] MEDS: ceFAZolin 2 GM/50 ML 2 GM/50 ML BAG IV SCH (19:27)
--- NOTE | 2019-01-11 19:45 | XRAY Report ---
Reason: LEFT HIP PINNING Procedure Date: 01/11/2019 Accession Number: [id number] / [id number] Procedure: XR - Hip w/Pelvis 2-3V LT CPT Code: FULL RESULT: EXAM: LEFT HIP RADIOGRAPHY EXAM DATE: 01/11/2019 04:37 PM. CLINICAL HISTORY: LEFT HIP PINNING. COMPARISON: HIP W/PELVIS 2-3V LT 01/10/2019 7:03 PM. TECHNIQUE: 5 spot views. FINDINGS: 5 spot views document placement of left intratrochanteric fracture fixation. IMPRESSION: Left intertrochanteric fracture fixation. RADIA
[2019-01-11] MEDS: SODIUM CHLORIDE FLUSH 0.9% 10 ML SYRINGE IVP PRN (21:56)
[2019-01-12] MEDS: SODIUM CHLORIDE FLUSH 0.9% 10 ML SYRINGE IVP SCH ×3 (02:01→16:26)
[2019-01-12] MEDS: HYDROmorphone 1 MG/ML CARPUJECT IVP PRN ×3 (02:02→14:14)
[2019-01-12] MEDS: ceFAZolin 2 GM/50 ML 2 GM/50 ML BAG IV SCH (02:26)
[2019-01-12] MEDS: NS W/20 MEQ KCL 1,000 ML IV SCH ×3 (02:27→18:42)
[2019-01-12 05:52] LABS: BASOPHILS % (AUTO) 0.1 %; HGB - HEMOGLOBIN 10.9 g/dL (12.0-16.0); LYMPHOCYTES # (AUTO) 0.9 10^3/uL (1.5-3.5); MEAN CORPUSCULAR HEMOGLOBIN 31.5 pg (27.0-31.0); MEAN CORPUSCULAR HGB CONC 33.3 g/dL (32.0-36.0); MEAN CORPUSCULAR VOLUME 94.5 fL (81.0-99.0); MEAN PLATELET VOLUME 7.7 fL (7.9-10.8); MONOCYTES % (AUTO) 9.9 %; NEUTROPHILS # (AUTO) 7.8 10^3/uL (1.5-6.6); PLT - PLATELET COUNT 215 10^3/uL (130-450); RED BLOOD COUNT 3.46 10^6/uL (4.20-5.40); RED CELL DISTRIBUTION WIDTH 12.9 % (12.0-15.0); WHITE BLOOD COUNT 9.6 x10^3/uL (4.8-10.8)
[2019-01-12 06:00] LABS: CALCIUM 8.3 mg/dL (8.5-10.3)
--- NOTE | 2019-01-12 08:19 | PROVIDER PROGRESS NOTE ---
Subjective - Prog Note Date Prog Note Date: 01/12/19 - Subjective Pt reports feeling: No change (Patient seen with daughter at bedside. Patient awake and talking.) Objective - Vital Signs/Intake & Output Vital Signs: Vital Signs x48h Temp Pulse Resp BP Pulse Ox 01/12/19 05:35 37.0 C 95 20 114/70 99 01/12/19 05:00 37.0 C 95 20 114/70 99 Intake & Output: Intake & Output 01/09/19 01/10/19 01/11/19 01/12/19 22:59 23:59 23:59 23:59 Intake Total 1804.584 804.167 Output Total 1300 350 Balance 504.584 454.167 - Lab Results Fish Bones: 01/12/19 05:24 01/12/19 05:24 Other Labs: Lab Results x24hrs 01/12/19 01/12/19 Range/Units 05:24 05:24 WBC 9.6 (4.8-10.8) x10^3/uL RBC 3.46 L (4.20-5.40) 10^6/uL Hgb 10.9 L (12.0-16.0) g/dL Hct 32.7 L (37.0-47.0) % MCV 94.5 (81.0-99.0) fL MCH 31.5 H (27.0-31.0) pg MCHC 33.3 (32.0-36.0) g/dL RDW 12.9 (12.0-15.0) % Plt Count 215 (130-450) 10^3/uL MPV 7.7 L (7.9-10.8) fL Neut # (Auto) 7.8 H (1.5-6.6) 10^3/uL Lymph # (Auto) 0.9 L (1.5-3.5) 10^3/uL [place] # (Auto) 1.0 (0.0-1.0) 10^3/uL Eos # (Auto) 0.0 (0.0-0.7) 10^3/uL Baso # (Auto) 0.0 (0.0-0.1) 10^3/uL Absolute Nucleated RBC 0.00 x10^3/uL Nucleated RBC % 0.0 /100WBC Sodium 137 (135-145) mmol/L Potassium 3.8 (3.5-5.0) mmol/L Chloride 103 (101-111) mmol/L Carbon Dioxide 25 (21-32) mmol/L Anion Gap 9.0 (6-13) BUN 19 (6-20) mg/dL Creatinine 1.0 (0.4-1.0) mg/dL Estimated GFR (MDRD) 53 L (>89) Glucose 132 H (70-100) mg/dL Calcium 8.3 L (8.5-10.3) mg/dL - Other Results/Comments Other Results/Comments: Patient seen and examined. She is awake and talkative but not oriented. Patient is able to flex and extend toes and ankle easily. Calf not obviously tender. Left hip incision dressings clean dry and intact. Thigh calf soft. Assessment/Plan - Problem List (1) Intertrochanteric fracture of left hip Impression: Patient doing okay postoperative day #1 status post left hip cephalo-medullary nail. No signs of infection or DVT appreciated at this time. Recommend continued DVT prophylaxis. Recommend out of bed with physical therapy weightbearing as tolerated left lower extremity with assistance and assistive device as necessary. Recommend incentive spirometer q one hour when awake. Recommend SCD boots at all times when in bed. Social work SNF planning. Recommend limiting narcotic use consider other analgesic options- consider toradol. Continue Hospitalist medical management. Qualifiers: Encounter type: initial encounter Fracture type: closed Fracture alignment: nondisplaced Qualified Code(s): S72.145A - Nondisplaced intertrochanteric fracture of left femur, initial encounter for closed fracture
[2019-01-12] MEDS: KETOROLAC 15 MG/ML VIAL IVP PRN ×2 (08:44→18:44)
[2019-01-12] MEDS: ASPIRIN 325 MG TABLET PO SCH (08:44)
[2019-01-12] MEDS: POLYETHYLENE GLYCOL 3350 17 GM PACKET PO SCH (10:03)
--- NOTE | 2019-01-12 12:12 | PROVIDER PROGRESS NOTE ---
Assessment/Plan - Problem List (1) Intertrochanteric fracture of left hip Qualifiers: Encounter type: subsequent encounter Fracture type: closed Fracture alignment: nondisplaced Assessment/Plan: Pt is POD #1. Will continue pain meds as needed, and start PT today. She will need SNF when medically cleared in several days. (2) Dementia Assessment/Plan: Continue reorienting and cluing. (3) Sundowning Assessment/Plan: Continue reorienting and cluing. Seroquel treatment for sleeping at hs. (5) Chronic back pain Assessment/Plan: Pain meds prn, already being used for post-hip surgery pain. (6) Renal insufficiency Assessment/Plan: Resolved with hydration. (7) Anemia Assessment/Plan: This is likely to be hemodilutional, due to iv fluids since admission. [place] check B12, Folate and Iron panel, guiac stool. Replace if needed. - Current Meds Current Meds: Current Medications Generic Name Dose Route Start Last Admin Trade Name Freq PRN Reason Stop Dose Admin Aspirin 325 mg 01/12/19 08:00 01/12/19 08:44 Gerardo PO 325 mg DAILYWM KRYSTAL Administration Hydromorphone HCl 1 mg 01/10/19 19:52 01/12/19 04:52 Dilaudid Inj Carp IVP 1 mg Q2HR PRN Administration Pain 8 to 10 Potassium Chloride/Sodium Chloride 1,000 mls @ 125 mls/hr 01/11/19 16:00 01/12/19 11:01 Normal Saline 0.9% W/20 Meq Kcl IV 125 mls/hr .Q8H KRYSTAL Administration Ketorolac Tromethamine 15 mg 01/12/19 08:37 01/12/19 08:44 Toradol Inj (15mg) IVP 01/17/19 08:36 15 mg Q6HR PRN Administration PAIN Polyethylene Glycol 17 gm 01/11/19 09:00 01/12/19 10:03 Miralax PO Not Given DAILY KRYSTAL Sodium Chloride 10 ml 01/10/19 19:52 01/11/19 21:56 Normal Saline Flush 0.9% IVP 10 ml PRN PRN Administration NEEDED PER PROVIDER ORDERS Sodium Chloride 10 ml 01/11/19 01:00 01/12/19 08:44 Normal Saline Flush 0.9% IVP Not Given 0100,0900,1700 KRYSTAL - Lab Result Fish Bone Diagrams: 01/12/19 05:24 01/12/19 05:24 - Additional Planning My Orders: My Active Orders 01/12/19 08:37 Ketorolac Inj (15Mg) [Toradol Inj (15Mg)] 15 mg IVP Q6HR PRN Subjective - Subjective Nursing Reports: Other (Pt is hallucinating: seeing davila at her feet and a wedding in her room) Objective Vital Signs: Vital Signs - 24 hr 01/11/19 01/11/19 01/11/19 18:06 18:11 18:16 Temperature 38.2 C H 37.7 C H 37.7 C H Heart Rate 87 89 90 Heart Rate [ Brachial] Respiratory 11 L 11 L 12 Rate Blood Pressure 151/89 H 161/103 H 136/105 H Blood Pressure [Left Radial artery] Blood Pressure [Right Brachial artery] O2 Saturation 94 96 100 01/11/19 01/11/19 01/11/19 18:21 18:28 18:34 Temperature 37.7 C H 37.7 C H 37.8 C H Heart Rate 92 92 Heart Rate [ 89 Brachial] Respiratory 10 L 10 L 20 Rate Blood Pressure 114/90 H 145/83 H Blood Pressure [Left Radial artery] Blood Pressure 140/78 H [Right Brachial artery] O2 Saturation 96 99 99 01/11/19 01/11/19 01/11/19 19:04 19:59 20:50 Temperature 36.8 C 36.7 C 36.4 C L Heart Rate Heart Rate [ 94 98 101 H Brachial] Respiratory 16 18 20 Rate Blood Pressure Blood Pressure 129/76 [Left Radial artery] Blood Pressure 139/72 H 130/74 [Right Brachial artery] O2 Saturation 98 99 98 01/12/19 01/12/19 01/12/19 00:00 05:00 05:35 Temperature 36.8 C 37.0 C 37.0 C Heart Rate Heart Rate [ 94 95 95 Brachial] Respiratory 18 20 20 Rate Blood Pressure Blood Pressure [Left Radial artery] Blood Pressure 129/65 114/70 114/70 [Right Brachial artery] O2 Saturation 100 99 99 01/12/19 09:21 Temperature 36.7 C Heart Rate Heart Rate [ 106 H Brachial] Respiratory 16 Rate Blood Pressure Blood Pressure [Left Radial artery] Blood Pressure 113/56 L [Right Brachial artery] O2 Saturation 94 Oxygen O2 Source Room air I&O (Last 24 Hrs): Intake and Output Totals x24h 01/10/19 01/11/19 01/12/19 23:59 23:59 23:59 Intake Total 5773.937 7074.750 Output Total 1300 700 Balance 832.089 3164.750 General: Other (Oriented to self and family only) HEENT: Mucous membr. moist/pink Neck: Supple, No JVD Neuro: Other (Disoriented) Cardiovascular: Regular rate, No murmurs Respiratory: No respiratory distress, Breath sounds nml Abdomen: Soft Extremities: No edema - Results Results: Laboratory Results WBC 9.6 x10^3/uL (4.8-10.8) 01/12/19 05:24 RBC 3.46 10^6/uL (4.20-5.40) L 01/12/19 05:24 Hgb 10.9 g/dL (12.0-16.0) L 01/12/19 05:24 Hct 32.7 % (37.0-47.0) L 01/12/19 05:24 MCV 94.5 fL (81.0-99.0) 01/12/19 05:24 MCH 31.5 pg (27.0-31.0) H 01/12/19 05:24 MCHC 33.3 g/dL (32.0-36.0) 01/12/19 05:24 RDW 12.9 % (12.0-15.0) 01/12/19 05:24 Plt Count 215 10^3/uL (130-450) 01/12/19 05:24 MPV 7.7 fL (7.9-10.8) L 01/12/19 05:24 Neut # (Auto) 7.8 10^3/uL (1.5-6.6) H 01/12/19 05:24 Lymph # (Auto) 0.9 10^3/uL (1.5-3.5) L 01/12/19 05:24 [place] # (Auto) 1.0 10^3/uL (0.0-1.0) 01/12/19 05:24 Eos # (Auto) 0.0 10^3/uL (0.0-0.7) 01/12/19 05:24 Baso # (Auto) 0.0 10^3/uL (0.0-0.1) 01/12/19 05:24 Absolute Nucleated RBC 0.00 x10^3/uL 01/12/19 05:24 Nucleated RBC % 0.0 /100WBC 01/12/19 05:24 PT 12.9 secs (9.9-12.6) H 01/10/19 18:58 INR 1.1 (0.8-1.2) 01/10/19 18:58 APTT 27.7 secs (24.9-33.3) 01/10/19 18:58 Sodium 137 mmol/L (135-145) 01/12/19 05:24 Potassium 3.8 mmol/L (3.5-5.0) 01/12/19 05:24 Chloride 103 mmol/L (101-111) 01/12/19 05:24 Carbon Dioxide 25 mmol/L (21-32) 01/12/19 05:24 Anion Gap 9.0 (6-13) 01/12/19 05:24 BUN 19 mg/dL (6-20) 01/12/19 05:24 Creatinine 1.0 mg/dL (0.4-1.0) 01/12/19 05:24 Estimated GFR (MDRD) 53 (>89) L 01/12/19 05:24 Glucose 132 mg/dL (70-100) H 01/12/19 05:24 Calcium 8.3 mg/dL (8.5-10.3) L 01/12/19 05:24 Total Bilirubin 0.5 mg/dL (0.2-1.0) 01/10/19 18:58 AST 20 IU/L (10-42) 01/10/19 18:58 ALT 18 IU/L (10-60) 01/10/19 18:58 Alkaline Phosphatase 59 IU/L (42-121) 01/10/19 18:58 Total Protein 7.3 g/dL (6.7-8.2) 01/10/19 18:58 Albumin 3.8 g/dL (3.2-5.5) 01/10/19 18:58 Globulin 3.5 g/dL (2.1-4.2) 01/10/19 18:58 Albumin/Globulin Ratio 1.1 (1.0-2.2) 01/10/19 18:58 Lipase 34 U/L (22-51) 01/10/19 18:58 Urine Color YELLOW 01/10/19 20:03 Urine Clarity CLEAR (CLEAR) 01/10/19 20:03 Urine pH 7.5 PH (5.0-7.5) 01/10/19 20:03 Ur Specific [place] 1.015 (1.002-1.030) 01/10/19 20:03 Urine Protein NEGATIVE mg/dL (NEGATIVE) 01/10/19 20:03 Urine Glucose (UA) NEGATIVE mg/dL (NEGATIVE) 01/10/19 20:03 Urine Ketones NEGATIVE mg/dL (NEGATIVE) 01/10/19 20:03 Urine Occult Blood NEGATIVE (NEGATIVE) 01/10/19 20:03 Urine Nitrite NEGATIVE (NEGATIVE) 01/10/19 20:03 Urine Bilirubin NEGATIVE (NEGATIVE) 01/10/19 20:03 Urine Urobilinogen 0.2 (NORMAL) E.U./dL (NORMAL) 01/10/19 20:03 Ur Leukocyte Esterase NEGATIVE (NEGATIVE) 01/10/19 20:03 Ur Microscopic Review NOT INDICATED 01/10/19 20:03 Urine Culture Comments NOT INDICATED 01/10/19 20:03 Blood Type AB POSITIVE 01/10/19 20:10 Blood Type Recheck AB POSITIVE 01/10/19 18:58 Antibody Screen NEGATIVE 01/10/19 20:10 ABX Reporting Has patient been on IV antibiotics over the past 48 hours?: No
[2019-01-12] MEDS: ACETAMINOPHEN 325 MG TABLET PO PRN ×2 (12:48→17:20)
[2019-01-12] MEDS: CALCIUM CARBONATE CHEW 500 MG TABLET PO SCH (20:07)
[2019-01-12] MEDS ORDERED: QUEtiapine 25 MG TABLET PO SCH (21:00)
[2019-01-12] MEDS ORDERED: OLANZapine ODT 5 MG TABLET TL STA (23:49)
[2019-01-13] MEDS: KETOROLAC 15 MG/ML VIAL IVP PRN ×3 (00:42→16:07)
[2019-01-13] MEDS: NS W/20 MEQ KCL 1,000 ML IV SCH ×3 (01:29→16:07)
[2019-01-13] MEDS: SODIUM CHLORIDE FLUSH 0.9% 10 ML SYRINGE IVP SCH ×3 (01:55→16:07)
[2019-01-13] MEDS: SODIUM CHLORIDE FLUSH 0.9% 10 ML SYRINGE IVP PRN ×2 (08:04→17:53)
[2019-01-13] MEDS: POLYETHYLENE GLYCOL 3350 17 GM PACKET PO SCH (08:09)
[2019-01-13] MEDS: ASPIRIN 325 MG TABLET PO SCH (08:11)
[2019-01-13] MEDS: CHOLECALCIFEROL 1,000 UNIT TABLET PO SCH (08:41)
[2019-01-13] MEDS: CALCIUM CARBONATE CHEW 500 MG TABLET PO SCH ×2 (08:41→20:08)
--- NOTE | 2019-01-13 11:02 | PROVIDER PROGRESS NOTE ---
Assessment/Plan - Problem List (1) Intertrochanteric fracture of left hip Qualifiers: Encounter type: subsequent encounter Fracture type: closed Fracture alignment: nondisplaced Assessment/Plan: POD #2. Continue pain meds and progress with PT, OOB, etc, if she will cooperate. (2) Assessment/Plan: Will increase the scheduled Seroquel from 25 to 50 mg po at hs. Family stays at bedside to orient her. (3) Dementia Assessment/Plan: As above. (4) Chronic back pain Assessment/Plan: Pain meds ordered. (5) Anemia Qualifiers: Anemia type: iron deficiency Assessment/Plan: B12 is low, Iron is low, Folate is pending. Will begin B12 and Iron replacements. (6) Renal insufficiency Assessment/Plan: BUN/creat ratio worsening again. iv fluids were stopped to decrease lines that would confuse her. She is taking a diet. Follow BMP daily. (7) Osteoporosis Assessment/Plan: This has been ruled out with a normal DEXA scan. - Current Meds Current Meds: Current Medications Generic Name Dose Route Start Last Admin Trade Name Freq PRN Reason Stop Dose Admin Acetaminophen 650 mg 01/10/19 19:52 01/12/19 17:20 Tylenol PO 650 mg Q4HR PRN Administration Pain 1 to 4 Aspirin 325 mg 01/12/19 08:00 01/13/19 08:11 Gerardo PO 325 mg DAILYWM KRYSTAL Administration Calcium Carbonate/Glycine 500 mg 01/12/19 21:00 01/13/19 08:41 Tums PO Not Given BID KRYSTAL Cholecalciferol 2,000 unit 01/13/19 09:00 01/13/19 08:41 Vitamin D3 PO Not Given DAILY KRYSTAL Hydromorphone HCl 1 mg 01/10/19 19:52 01/12/19 14:14 Dilaudid Inj Carp IVP 1 mg Q2HR PRN Administration Pain 8 to 10 Potassium Chloride/Sodium Chloride 1,000 mls @ 125 mls/hr 01/11/19 16:00 01/13/19 09:34 Normal Saline 0.9% W/20 Meq Kcl IV 125 mls/hr .Q8H KRYSTAL Administration Ketorolac Tromethamine 15 mg 01/12/19 08:37 01/13/19 08:03 Toradol Inj (15mg) IVP 01/17/19 08:36 15 mg Q6HR PRN Administration PAIN Ondansetron HCl 4 mg 01/11/19 18:34 01/13/19 01:32 Zofran Inj IVP 4 mg Q6HR PRN Administration Nausea / Vomiting Polyethylene Glycol 17 gm 01/11/19 09:00 01/13/19 08:09 Miralax PO 17 gm DAILY KRYSTAL Administration Quetiapine Fumarate 25 mg 01/12/19 21:00 01/12/19 20:07 Seroquel PO 25 mg QPM KRYSTAL Administration Sodium Chloride 10 ml 01/10/19 19:52 01/13/19 08:04 Normal Saline Flush 0.9% IVP 10 ml PRN PRN Administration NEEDED PER PROVIDER ORDERS Sodium Chloride 10 ml 01/11/19 01:00 01/13/19 08:04 Normal Saline Flush 0.9% IVP 10 ml 0100,0900,1700 KRYSTAL Administration - Lab Result Fish Bone Diagrams: 01/13/19 15:01 01/13/19 15:01 - Additional Planning My Orders: My Active Orders 01/12/19 21:00 Calcium Carbonate [Tums] 500 mg PO BID QUEtiapine [SEROquel] 25 mg PO QPM 01/12/19 Dinner Regular Diet [DIET] 01/13/19 09:00 FOLATE [IAI] DAILY IRON TIBC PANEL [CHEM] DAILY VITAMIN B12 [IAI] DAILY Cholecalciferol [Vitamin D3] 2,000 unit PO DAILY Subjective - Subjective Patient Reports: Other (Saying that she is sawing today, daughter tells me she did sleep aftre the Seroquel for about 2 hours, then was fidgety all night.) Nursing Reports: Other (Pt refused po meds this am) Objective Vital Signs: Vital Signs - 24 hr 01/12/19 01/13/19 01/13/19 16:00 00:00 05:24 Temperature 37.1 C 37.1 C 37.5 C Heart Rate [ 92 113 H Brachial] Respiratory 18 19 Rate Blood Pressure 111/55 L [Right Brachial artery] O2 Saturation 96 93 01/13/19 07:59 Temperature 37.2 C Heart Rate [ 99 Brachial] Respiratory 17 Rate Blood Pressure [Right Brachial artery] O2 Saturation Oxygen O2 Source Room air I&O (Last 24 Hrs): Intake and Output Totals x24h 01/11/19 01/12/19 01/13/19 23:59 23:59 23:59 Intake Total 3513.432 6674.167 2087.917 Output Total 1300 1450 975 Balance 135.300 3354.167 1112.917 General: Other (Awake, halkucinating) HEENT: Mucous membr. moist/pink Neck: Supple Neuro: Other (Disoriented) Cardiovascular: Regular rate Respiratory: No respiratory distress Abdomen: Soft Extremities: No edema - Results Results: Laboratory Results WBC 9.6 x10^3/uL (4.8-10.8) 01/12/19 05:24 RBC 3.46 10^6/uL (4.20-5.40) L 01/12/19 05:24 Hgb 10.9 g/dL (12.0-16.0) L 01/12/19 05:24 Hct 32.7 % (37.0-47.0) L 01/12/19 05:24 MCV 94.5 fL (81.0-99.0) 01/12/19 05:24 MCH 31.5 pg (27.0-31.0) H 01/12/19 05:24 MCHC 33.3 g/dL (32.0-36.0) 01/12/19 05:24 RDW 12.9 % (12.0-15.0) 01/12/19 05:24 Plt Count 215 10^3/uL (130-450) 01/12/19 05:24 MPV 7.7 fL (7.9-10.8) L 01/12/19 05:24 Neut # (Auto) 7.8 10^3/uL (1.5-6.6) H 01/12/19 05:24 Lymph # (Auto) 0.9 10^3/uL (1.5-3.5) L 01/12/19 05:24 [place] # (Auto) 1.0 10^3/uL (0.0-1.0) 01/12/19 05:24 Eos # (Auto) 0.0 10^3/uL (0.0-0.7) 01/12/19 05:24 Baso # (Auto) 0.0 10^3/uL (0.0-0.1) 01/12/19 05:24 Absolute Nucleated RBC 0.00 x10^3/uL 01/12/19 05:24 Nucleated RBC % 0.0 /100WBC 01/12/19 05:24 PT 12.9 secs (9.9-12.6) H 01/10/19 18:58 INR 1.1 (0.8-1.2) 01/10/19 18:58 APTT 27.7 secs (24.9-33.3) 01/10/19 18:58 Sodium 137 mmol/L (135-145) 01/12/19 05:24 Potassium 3.8 mmol/L (3.5-5.0) 01/12/19 05:24 Chloride 103 mmol/L (101-111) 01/12/19 05:24 Carbon Dioxide 25 mmol/L (21-32) 01/12/19 05:24 Anion Gap 9.0 (6-13) 01/12/19 05:24 BUN 19 mg/dL (6-20) 01/12/19 05:24 Creatinine 1.0 mg/dL (0.4-1.0) 01/12/19 05:24 Estimated GFR (MDRD) 53 (>89) L 01/12/19 05:24 Glucose 132 mg/dL (70-100) H 01/12/19 05:24 Calcium 8.3 mg/dL (8.5-10.3) L 01/12/19 05:24 Total Bilirubin 0.5 mg/dL (0.2-1.0) 01/10/19 18:58 AST 20 IU/L (10-42) 01/10/19 18:58 ALT 18 IU/L (10-60) 01/10/19 18:58 Alkaline Phosphatase 59 IU/L (42-121) 01/10/19 18:58 Total Protein 7.3 g/dL (6.7-8.2) 01/10/19 18:58 Albumin 3.8 g/dL (3.2-5.5) 01/10/19 18:58 Globulin 3.5 g/dL (2.1-4.2) 01/10/19 18:58 Albumin/Globulin Ratio 1.1 (1.0-2.2) 01/10/19 18:58 Lipase 34 U/L (22-51) 01/10/19 18:58 Urine Color YELLOW 01/10/19 20:03 Urine Clarity CLEAR (CLEAR) 01/10/19 20:03 Urine pH 7.5 PH (5.0-7.5) 01/10/19 20:03 Ur Specific [place] 1.015 (1.002-1.030) 01/10/19 20:03 Urine Protein NEGATIVE mg/dL (NEGATIVE) 01/10/19 20:03 Urine Glucose (UA) NEGATIVE mg/dL (NEGATIVE) 01/10/19 20:03 Urine Ketones NEGATIVE mg/dL (NEGATIVE) 01/10/19 20:03 Urine Occult Blood NEGATIVE (NEGATIVE) 01/10/19 20:03 Urine Nitrite NEGATIVE (NEGATIVE) 01/10/19 20:03 Urine Bilirubin NEGATIVE (NEGATIVE) 01/10/19 20:03 Urine Urobilinogen 0.2 (NORMAL) E.U./dL (NORMAL) 01/10/19 20:03 Ur Leukocyte Esterase NEGATIVE (NEGATIVE) 01/10/19 20:03 Ur Microscopic Review NOT INDICATED 01/10/19 20:03 Urine Culture Comments NOT INDICATED 01/10/19 20:03 Blood Type AB POSITIVE 01/10/19 20:10 Blood Type Recheck AB POSITIVE 01/10/19 18:58 Antibody Screen NEGATIVE 01/10/19 20:10
[2019-01-13] MEDS: ACETAMINOPHEN 1,000 MG/100 ML 100 ML IV PRN ×2 (11:31→17:52)
[2019-01-13 15:23] LABS: BASOPHILS % (AUTO) 0.5 %; EOSINOPHILS # (AUTO) 0.2 10^3/uL (0.0-0.7); EOSINOPHILS % (AUTO) 2.3 %; HGB - HEMOGLOBIN 9.2 g/dL (12.0-16.0); LYMPHOCYTES % (AUTO) 13.3 %; MEAN CORPUSCULAR HEMOGLOBIN 31.5 pg (27.0-31.0); MEAN CORPUSCULAR VOLUME 95.4 fL (81.0-99.0); MEAN PLATELET VOLUME 7.8 fL (7.9-10.8); MONOCYTES % (AUTO) 13.3 %; NEUTROPHILS # (AUTO) 5.5 10^3/uL (1.5-6.6); NEUTROPHILS % (AUTO) 70.6 %; PLT - PLATELET COUNT 211 10^3/uL (130-450); RED BLOOD COUNT 2.92 10^6/uL (4.20-5.40); RED CELL DISTRIBUTION WIDTH 12.7 % (12.0-15.0); WHITE BLOOD COUNT 7.8 x10^3/uL (4.8-10.8)
[2019-01-13 15:35] LABS: % IRON SATURATION 6 % (20-50); IRON 11 ug/dL (28-170); TOTAL IRON BINDING CAPACITY 181 ug/dL (250-450); TRANSFERRIN 129 mg/dL (192-382)
--- NOTE | 2019-01-13 15:50 | PROVIDER PROGRESS NOTE ---
Subjective - Prog Note Date Prog Note Date: 01/13/19 - Subjective Subjective: Patient reportedly had difficult overnight per nursing staff. Patient reportedly comfortable now in the a.m. resting. Patient seen with family at bedside. Objective - Vital Signs/Intake & Output Vital Signs: Vital Signs x48h Temp Pulse Pulse Pulse Resp BP BP 01/13/19 15:30 36.9 C 81 18 108/70 01/13/19 11:32 98 104 H 127/72 01/13/19 07:59 37.2 C 99 17 BP Pulse Ox 01/13/19 15:30 96 01/13/19 11:32 118/61 01/13/19 07:59 Intake & Output: Intake & Output 01/10/19 01/11/19 01/12/19 01/13/19 23:59 23:59 23:59 23:59 Intake Total 5193.597 1969.167 2702.917 Output Total 1300 1450 1975 Balance 398.266 1588.167 727.917 - Lab Results Fish Bones: 01/13/19 15:01 01/13/19 15:01 Other Labs: Lab Results x24hrs 01/13/19 01/13/19 01/13/19 Range/Units 15:01 15:01 15:01 WBC 7.8 (4.8-10.8) x10^3/uL RBC 2.92 L (4.20-5.40) 10^6/uL Hgb 9.2 L (12.0-16.0) g/dL Hct 27.9 L (37.0-47.0) % MCV 95.4 (81.0-99.0) fL MCH 31.5 H (27.0-31.0) pg MCHC 33.0 (32.0-36.0) g/dL RDW 12.7 (12.0-15.0) % Plt Count 211 (130-450) 10^3/uL MPV 7.8 L (7.9-10.8) fL Neut # (Auto) 5.5 (1.5-6.6) 10^3/uL Lymph # (Auto) 1.0 L (1.5-3.5) 10^3/uL [place] # (Auto) 1.0 (0.0-1.0) 10^3/uL Eos # (Auto) 0.2 (0.0-0.7) 10^3/uL Baso # (Auto) 0.0 (0.0-0.1) 10^3/uL Absolute Nucleated RBC 0.00 x10^3/uL Nucleated RBC % 0.0 /100WBC Sodium 142 (135-145) mmol/L Potassium 4.3 (3.5-5.0) mmol/L Chloride 111 (101-111) mmol/L Carbon Dioxide 22 (21-32) mmol/L Anion Gap 9.0 (6-13) BUN 25 H (6-20) mg/dL Creatinine 1.0 (0.4-1.0) mg/dL Estimated GFR (MDRD) 53 L (>89) Glucose 104 H (70-100) mg/dL Calcium 8.0 L (8.5-10.3) mg/dL Iron 11 L (28-170) ug/dL TIBC 181 L (250-450) ug/dL % Saturation 6 L (20-50) % Transferrin 129 L (192-382) mg/dL - Other Results/Comments Other Results/Comments: Patient resting comfortably. She spontaneously flex and extend her toes and ankle. Patient's left hip region incisions with silver dressings clean dry and intact no significant erythema appreciated. Assessment/Plan - Problem List (1) Intertrochanteric fracture of left hip Impression: Patient orthopedically stable with regards to her left intertrochanteric hip fracture and surgery. I recommend continued DVT prophylaxis mechanical and chemical. Recommend incentive spirometer every hour when awake. We discussed potential IV Tylenol with the hospitalist as well as other management of "sundowning". I recommend continued weightbearing as tolerated left lower extremity with assi stance and assistive device with help of occupational and physical therapy. She will use assistive device as necessary. Recommend continued social work and sniff placement once medically stable. Pending above, okay for discharge from orthopedic perspective. Discussed with family. questions answered they verbalized understanding and satisfaction with the plan. Qualifiers: Encounter type: subsequent encounter Fracture type: closed Fracture alignment: nondisplaced
[2019-01-13] MEDS ORDERED: CYANOCOBALAMIN 1,000 MCG/ML VIAL IM ONE (17:03)
[2019-01-13] MEDS: FERROUS GLUCONATE 324 MG TABLET PO SCH (20:08)
[2019-01-13] MEDS ORDERED: QUEtiapine 25 MG TABLET PO SCH (21:00)
[2019-01-14] MEDS: ACETAMINOPHEN 1,000 MG/100 ML 100 ML IV PRN ×3 (00:11→20:05)
[2019-01-14] MEDS: SODIUM CHLORIDE FLUSH 0.9% 10 ML SYRINGE IVP SCH ×3 (00:12→19:15)
[2019-01-14] MEDS: KETOROLAC 15 MG/ML VIAL IVP PRN ×2 (05:26→13:19)
[2019-01-14] MEDS: NS W/20 MEQ KCL 1,000 ML IV SCH (05:26)
--- NOTE | 2019-01-14 08:51 | PROVIDER PROGRESS NOTE ---
Assessment/Plan - Problem List (1) Intertrochanteric fracture of left hip Qualifiers: Encounter type: subsequent encounter Fracture type: closed Fracture alignment: nondisplaced Assessment/Plan: POD #3. Advance PT. Pain meds as needed. If she is able to cooperate with PT more today, after having finally rested overnight, will plan for a transfer to SNF, possibly tomorrow. (2) Assessment/Plan: Seroquel did work last night and patient slept soundly, but she is too lethargic to awaken this a.m. likely due to late dosing of Setroquel at 9 pm. Will schedule Seroquel at 7 pm, to have effect earlier. If she is able to cooperate with PT more today, after having finally rested overnight, will plan for a transfer to SNF, possibly tomorrow. (3) Dementia Assessment/Plan: Same (4) Chronic back pain Assessment/Plan: Stable on meds (5) Anemia Qualifiers: Anemia type: iron deficiency Assessment/Plan: Labs showed low B12 and low Iron stores. She got an im B12 dose and was started on Iron po yesterday. (6) Renal insufficiency Assessment/Plan: She has become more pre-renal by rising BUN. She is on a TKO of saline. Will increase the iv rate for a day. Will stop nephrotoxins: Toradol. Follow BMP daily. - Current Meds Current Meds: Current Medications Generic Name Dose Route Start Last Admin Trade Name Freq PRN Reason Stop Dose Admin Acetaminophen 650 mg 01/10/19 19:52 01/12/19 17:20 Tylenol PO 650 mg Q4HR PRN Administration Pain 1 to 4 Aspirin 325 mg 01/12/19 08:00 01/13/19 08:11 Gerardo PO 325 mg DAILYWM KRYSTAL Administration Calcium Carbonate/Glycine 500 mg 01/12/19 21:00 01/13/19 20:08 Tums PO 500 mg BID KRYSTAL Administration Cholecalciferol 2,000 unit 01/13/19 09:00 01/13/19 08:41 Vitamin D3 PO Not Given DAILY KRYSTAL Ferrous Gluconate 324 mg 01/13/19 18:00 01/13/19 20:08 Fergon PO 324 mg DAILYWM KRYSTAL Administration Hydromorphone HCl 1 mg 01/10/19 19:52 01/12/19 14:14 Dilaudid Inj Carp IVP 1 mg Q2HR PRN Administration Pain 8 to 10 Acetaminophen 100 mls @ 400 mls/hr 01/13/19 11:04 01/14/19 00:57 Ofirmev IV Infused Q6HR PRN Infusion PAIN Potassium Chloride/Sodium Chloride 1,000 mls @ 40 mls/hr 01/13/19 11:07 01/14/19 05:26 Normal Saline 0.9% W/20 Meq Kcl IV 40 mls/hr .Q25H KRYSTAL Administration Ketorolac Tromethamine 15 mg 01/12/19 08:37 01/14/19 05:26 Toradol Inj (15mg) IVP 01/17/19 08:36 15 mg Q6HR PRN Administration PAIN Ondansetron HCl 4 mg 01/11/19 18:34 01/13/19 01:32 Zofran Inj IVP 4 mg Q6HR PRN Administration Nausea / Vomiting Polyethylene Glycol 17 gm 01/11/19 09:00 01/13/19 08:09 Miralax PO 17 gm DAILY KRYSTAL Administration Sodium Chloride 10 ml 01/10/19 19:52 01/13/19 17:53 Normal Saline Flush 0.9% IVP 10 ml PRN PRN Administration NEEDED PER PROVIDER ORDERS Sodium Chloride 10 ml 01/11/19 01:00 01/14/19 00:12 Normal Saline Flush 0.9% IVP Not Given 0100,0900,1700 KRYSTAL - Lab Result Fish Bone Diagrams: 01/13/19 15:01 01/13/19 15:01 - Additional Planning My Orders: My Active Orders 01/13/19 09:00 Cholecalciferol [Vitamin D3] 2,000 unit PO DAILY 01/13/19 11:04 Acetaminophen 1,000 mg/100 ml [Ofirmev] 100 ml IV Q6HR 01/13/19 11:07 Ns W/20 Meq KCl [Normal Saline 0.9% W/20 Meq KCl] 1,000 ml IV 40 mls/hr 01/13/19 18:00 Ferrous Gluconate [Fergon] 324 mg PO DAILYWM 01/14/19 08:47 [place] Discontinuation [RC] ONCE 01/14/19 09:00 Docusate Sodium 250Mg Capsule [Colace 250Mg Capsule] 250 - 500 mg PO DAILY Senna [Senokot] 8.6 - 17.2 mg PO DAILY 01/14/19 19:00 QUEtiapine [SEROquel] 50 mg PO 1900 Subjective - Subjective Patient Reports: Resting Comfortably Nursing Reports: Other (Deep asleep, hard to awaken for breakfast) Objective Vital Signs: Vital Signs - 24 hr 01/13/19 01/13/19 01/13/19 11:32 15:30 23:34 Temperature 36.9 C Heart Rate [ 98 Activity] Heart Rate [ 81 Brachial] Heart Rate [ 104 H Supine] Respiratory 18 17 Rate Blood Pressure 127/72 [Activity] Blood Pressure [Left Brachial artery] Blood Pressure 108/70 [Right Brachial artery] Blood Pressure 118/61 [Supine] O2 Saturation 96 01/14/19 01/14/19 01/14/19 00:57 03:20 04:29 Temperature 36.2 C L Heart Rate [ Activity] Heart Rate [ 80 67 74 Brachial] Heart Rate [ Supine] Respiratory 17 18 18 Rate Blood Pressure [Activity] Blood Pressure 127/46 L [Left Brachial artery] Blood Pressure [Right Brachial artery] Blood Pressure [Supine] O2 Saturation 97 01/14/19 07:59 Temperature 36.2 C L Heart Rate [ Activity] Heart Rate [ 62 Brachial] Heart Rate [ Supine] Respiratory 18 Rate Blood Pressure [Activity] Blood Pressure 103/62 [Left Brachial artery] Blood Pressure [Right Brachial artery] Blood Pressure [Supine] O2 Saturation 97 Oxygen O2 Source Room air I&O (Last 24 Hrs): Intake and Output Totals x24h 01/12/19 01/13/19 01/14/19 23:59 23:59 23:59 Intake Total 3674.167 3652.917 725 Output Total 1450 2125 850 Balance 2224.167 1527.917 -125 General: Other (sleeping) HEENT: Mucous membr. moist/pink Neck: Supple, No JVD Neuro: Non Focal Cardiovascular: Regular rate Respiratory: No respiratory distress Abdomen: Soft Extremities: No edema - Results Results: Laboratory Results WBC 7.8 x10^3/uL (4.8-10.8) 01/13/19 15:01 RBC 2.92 10^6/uL (4.20-5.40) L 01/13/19 15:01 Hgb 9.2 g/dL (12.0-16.0) L 01/13/19 15:01 Hct 27.9 % (37.0-47.0) L 01/13/19 15:01 MCV 95.4 fL (81.0-99.0) 01/13/19 15:01 MCH 31.5 pg (27.0-31.0) H 01/13/19 15:01 MCHC 33.0 g/dL (32.0-36.0) 01/13/19 15:01 RDW 12.7 % (12.0-15.0) 01/13/19 15:01 Plt Count 211 10^3/uL (130-450) 01/13/19 15:01 MPV 7.8 fL (7.9-10.8) L 01/13/19 15:01 Neut # (Auto) 5.5 10^3/uL (1.5-6.6) 01/13/19 15:01 Lymph # (Auto) 1.0 10^3/uL (1.5-3.5) L 01/13/19 15:01 [place] # (Auto) 1.0 10^3/uL (0.0-1.0) 01/13/19 15:01 Eos # (Auto) 0.2 10^3/uL (0.0-0.7) 01/13/19 15:01 Baso # (Auto) 0.0 10^3/uL (0.0-0.1) 01/13/19 15:01 Absolute Nucleated RBC 0.00 x10^3/uL 01/13/19 15:01 Nucleated RBC % 0.0 /100WBC 01/13/19 15:01 PT 12.9 secs (9.9-12.6) H 01/10/19 18:58 INR 1.1 (0.8-1.2) 01/10/19 18:58 APTT 27.7 secs (24.9-33.3) 01/10/19 18:58 Sodium 142 mmol/L (135-145) 01/13/19 15:01 Potassium 4.3 mmol/L (3.5-5.0) 01/13/19 15:01 Chloride 111 mmol/L (101-111) 01/13/19 15:01 Carbon Dioxide 22 mmol/L (21-32) 01/13/19 15:01 Anion Gap 9.0 (6-13) 01/13/19 15:01 BUN 25 mg/dL (6-20) H 01/13/19 15:01 Creatinine 1.0 mg/dL (0.4-1.0) 01/13/19 15:01 Estimated GFR (MDRD) 53 (>89) L 01/13/19 15:01 Glucose 104 mg/dL (70-100) H 01/13/19 15:01 Calcium 8.0 mg/dL (8.5-10.3) L 01/13/19 15:01 Iron 11 ug/dL (28-170) L 01/13/19 15:01 TIBC 181 ug/dL (250-450) L 01/13/19 15:01 % Saturation 6 % (20-50) L 01/13/19 15:01 Transferrin 129 mg/dL (192-382) L 01/13/19 15:01 Total Bilirubin 0.5 mg/dL (0.2-1.0) 01/10/19 18:58 AST 20 IU/L (10-42) 01/10/19 18:58 ALT 18 IU/L (10-60) 01/10/19 18:58 Alkaline Phosphatase 59 IU/L (42-121) 01/10/19 18:58 Total Protein 7.3 g/dL (6.7-8.2) 01/10/19 18:58 Albumin 3.8 g/dL (3.2-5.5) 01/10/19 18:58 Globulin 3.5 g/dL (2.1-4.2) 01/10/19 18:58 Albumin/Globulin Ratio 1.1 (1.0-2.2) 01/10/19 18:58 Lipase 34 U/L (22-51) 01/10/19 18:58 Vitamin B12 118 pg/mL (180-914) L 01/13/19 15:01 Folate 30.00 ng/mL (5.90 - >24.8) 01/13/19 15:01 Urine Color YELLOW 01/10/19 20:03 Urine Clarity CLEAR (CLEAR) 01/10/19 20:03 Urine pH 7.5 PH (5.0-7.5) 01/10/19 20:03 Ur Specific [place] 1.015 (1.002-1.030) 01/10/19 20:03 Urine Protein NEGATIVE mg/dL (NEGATIVE) 01/10/19 20:03 Urine Glucose (UA) NEGATIVE mg/dL (NEGATIVE) 01/10/19 20:03 Urine Ketones NEGATIVE mg/dL (NEGATIVE) 01/10/19 20:03 Urine Occult Blood NEGATIVE (NEGATIVE) 01/10/19 20:03 Urine Nitrite NEGATIVE (NEGATIVE) 01/10/19 20:03 Urine Bilirubin NEGATIVE (NEGATIVE) 01/10/19 20:03 Urine Urobilinogen 0.2 (NORMAL) E.U./dL (NORMAL) 01/10/19 20:03 Ur Leukocyte Esterase NEGATIVE (NEGATIVE) 01/10/19 20:03 Ur Microscopic Review NOT INDICATED 01/10/19 20:03 Urine Culture Comments NOT INDICATED 01/10/19 20:03 Blood Type AB POSITIVE 01/10/19 20:10 Blood Type Recheck AB POSITIVE 01/10/19 18:58 Antibody Screen NEGATIVE 01/10/19 20:10 ABX Reporting Has patient been on IV antibiotics over the past 48 hours?: No
[2019-01-14] MEDS ORDERED: DOCUSATE SODIUM 250 MG CAPSULE PO SCH (09:00)
[2019-01-14] MEDS ORDERED: SENNA 8.6 MG TABLET PO SCH (09:00)
[2019-01-14] MEDS: CHOLECALCIFEROL 1,000 UNIT TABLET PO SCH (10:27)
[2019-01-14] MEDS: ASPIRIN 325 MG TABLET PO SCH (10:27)
[2019-01-14] MEDS: CALCIUM CARBONATE CHEW 500 MG TABLET PO SCH ×2 (10:28→19:22)
[2019-01-14] MEDS: POLYETHYLENE GLYCOL 3350 17 GM PACKET PO SCH (10:28)
[2019-01-14] MEDS: FERROUS GLUCONATE 324 MG TABLET PO SCH (10:28)
[2019-01-14] MEDS: SODIUM CHLORIDE FLUSH 0.9% 10 ML SYRINGE IVP PRN (13:22)
--- NOTE | 2019-01-14 13:27 | PROVIDER PROGRESS NOTE ---
Subjective - Prog Note Date Prog Note Date: 01/14/19 - Subjective Pt reports feeling: Improved (Patient says she is feeling well does have some hip soreness but reportedly had a "good night" and is comfortable in general- unless moves and left upper thigh "sore") Objective - Vital Signs/Intake & Output Vital Signs: Vital Signs x48h Temp Pulse Resp BP Pulse Ox 01/14/19 07:59 36.2 C L 62 18 103/62 97 Intake & Output: Intake & Output 01/11/19 01/12/19 01/13/19 01/14/19 23:59 23:59 23:59 23:59 Intake Total 9821.958 0501.167 3652.917 825 Output Total 1300 1450 2125 850 Balance 032.834 3713.167 1527.917 -25 - Lab Results Fish Bones: 01/13/19 15:01 01/13/19 15:01 Other Labs: Lab Results x24hrs 01/13/19 01/13/19 01/13/19 Range/Units 15:01 15:01 15:01 WBC (4.8-10.8) x10^3/uL RBC (4.20-5.40) 10^6/uL Hgb (12.0-16.0) g/dL Hct (37.0-47.0) % MCV (81.0-99.0) fL MCH (27.0-31.0) pg MCHC (32.0-36.0) g/dL RDW (12.0-15.0) % Plt Count (130-450) 10^3/uL MPV (7.9-10.8) fL Neut # (Auto) (1.5-6.6) 10^3/uL Lymph # (Auto) (1.5-3.5) 10^3/uL [place] # (Auto) (0.0-1.0) 10^3/uL Eos # (Auto) (0.0-0.7) 10^3/uL Baso # (Auto) (0.0-0.1) 10^3/uL Absolute Nucleated RBC x10^3/uL Nucleated RBC % /100WBC Sodium 142 (135-145) mmol/L Potassium 4.3 (3.5-5.0) mmol/L Chloride 111 (101-111) mmol/L Carbon Dioxide 22 (21-32) mmol/L Anion Gap 9.0 (6-13) BUN 25 H (6-20) mg/dL Creatinine 1.0 (0.4-1.0) mg/dL Estimated GFR (MDRD) 53 L (>89) Glucose 104 H (70-100) mg/dL Calcium 8.0 L (8.5-10.3) mg/dL Iron 11 L (28-170) ug/dL TIBC 181 L (250-450) ug/dL % Saturation 6 L (20-50) % Transferrin 129 L (192-382) mg/dL Vitamin B12 118 L (180-914) pg/mL Folate 30.00 (5.90 - >24.8) ng/mL 01/13/19 Range/Units 15:01 WBC 7.8 (4.8-10.8) x10^3/uL RBC 2.92 L (4.20-5.40) 10^6/uL Hgb 9.2 L (12.0-16.0) g/dL Hct 27.9 L (37.0-47.0) % MCV 95.4 (81.0-99.0) fL MCH 31.5 H (27.0-31.0) pg MCHC 33.0 (32.0-36.0) g/dL RDW 12.7 (12.0-15.0) % Plt Count 211 (130-450) 10^3/uL MPV 7.8 L (7.9-10.8) fL Neut # (Auto) 5.5 (1.5-6.6) 10^3/uL Lymph # (Auto) 1.0 L (1.5-3.5) 10^3/uL [place] # (Auto) 1.0 (0.0-1.0) 10^3/uL Eos # (Auto) 0.2 (0.0-0.7) 10^3/uL Baso # (Auto) 0.0 (0.0-0.1) 10^3/uL Absolute Nucleated RBC 0.00 x10^3/uL Nucleated RBC % 0.0 /100WBC Sodium (135-145) mmol/L Potassium (3.5-5.0) mmol/L Chloride (101-111) mmol/L Carbon Dioxide (21-32) mmol/L Anion Gap (6-13) BUN (6-20) mg/dL Creatinine (0.4-1.0) mg/dL Estimated GFR (MDRD) (>89) Glucose (70-100) mg/dL Calcium (8.5-10.3) mg/dL Iron (28-170) ug/dL TIBC (250-450) ug/dL % Saturation (20-50) % Transferrin (192-382) mg/dL Vitamin B12 (180-914) pg/mL Folate (5.90 - >24.8) ng/mL - Other Results/Comments Other Results/Comments: Left hip silver dressing clean dry and intact no surrounding erythema. Patient is able to flex and extend ankle as well as initiate flexion extension of the left knee as well as initiate hip flexion against gravity. Thigh and calf soft. Bilateral calf soft nontender. She has no pain with gentle internal/external rotation of left hip at rest. She is examined when she is up in a chair. Assessment/Plan - Problem List (1) Intertrochanteric fracture of left hip Impression: Orthopedically stable with regards to left hip fracture and surgery. Recommend continued medical management. Continued out of bed with physical therapy assistance and assistive device. Weightbearing as tolerated left lower extremity. Recommend encourage home exercises. [facility]. Department discharge patient may follow-up in orthopedic clinic 10-14 days or sooner on an as-needed basis. Questions answered of patient and family they verbalized understanding agreement and satisfaction with plan as outlined. Qualifiers: Encounter type: subsequent encounter Fracture type: closed Fracture alignment: nondisplaced
[2019-01-14] MEDS ORDERED: QUEtiapine 25 MG TABLET PO SCH (19:00)
[2019-01-14] MEDS: oxyCODONE 5 MG TABLET PO PRN (19:06)
[2019-01-14] MEDS ORDERED: ZINC OXIDE 20% OINT 28.35 GM TUBE TOP PRN (22:39)
[2019-01-15] MEDS: NS W/20 MEQ KCL 1,000 ML IV SCH ×2 (02:17→02:19)
[2019-01-15] MEDS: SODIUM CHLORIDE FLUSH 0.9% 10 ML SYRINGE IVP SCH ×2 (02:18→08:57)
[2019-01-15] MEDS ORDERED: BISACODYL 10 MG SUPP PR SCH (02:58)
[2019-01-15] MEDS: oxyCODONE 5 MG TABLET PO PRN (05:58)
[2019-01-15] MEDS: ASPIRIN 325 MG TABLET PO SCH (08:55)
[2019-01-15] MEDS: FERROUS GLUCONATE 324 MG TABLET PO SCH (08:56)
[2019-01-15] MEDS: CHOLECALCIFEROL 1,000 UNIT TABLET PO SCH (08:56)
[2019-01-15] MEDS: CALCIUM CARBONATE CHEW 500 MG TABLET PO SCH (08:56)
[2019-01-15] MEDS: POLYETHYLENE GLYCOL 3350 17 GM PACKET PO SCH (08:56)
[2019-01-15] MEDS ORDERED: SENNA 8.6 MG TABLET PO SCH (09:00)
[2019-01-15] MEDS ORDERED: DOCUSATE SODIUM 250 MG CAPSULE PO SCH (09:00)
--- NOTE | 2019-01-15 11:04 | PROVIDER PROGRESS NOTE ---
Subjective - Prog Note Date Prog Note Date: 01/15/19 - Subjective Subjective: Patient reports that she is more uncomfortable today than she was yesterday. Patient's family who is at the bedside says she was very lucid this morning but seems to be in a bit of pain at this time. Patient points broadly towards the left groin region as the location of that. They also say that her stomach is "rumbling". Objective - Vital Signs/Intake & Output Vital Signs: Vital Signs x48h Temp Pulse Resp BP Pulse Ox 01/15/19 08:00 36.8 C 106 H 20 107/52 L 98 01/15/19 06:01 36.7 C 86 18 141/75 H 96 Intake & Output: Intake & Output 01/12/19 01/13/19 01/14/19 01/15/19 23:59 23:59 23:59 23:59 Intake Total 3674.167 3652.917 1940 Output Total 1450 2125 1525 250 Balance 2224.167 1527.917 415 -250 - Lab Results Fish Bones: 01/13/19 15:01 01/13/19 15:01 - Other Results/Comments Other Results/Comments: Patient's left lower extremity remains neurovascularly unchanged distally. Patient is able to flex and extend ankle and initiate flexion extension knee. When distracted she does not have reported pain with hip internal/external rotation. She does otherwise report some soreness and points to the left lateral proximal thigh with internal/external rotation. No tenderness in the calves which are bilaterally soft. Patient is out of bed in chair. Left hip dressing cdi. no erythema. Assessment/Plan - Problem List (1) Intertrochanteric fracture of left hip Impression: Patient is ortho stable status post left hip cephalo-medullary nail placement. No obvious acute process aside from known injury and surgery and left hip. That said I will get x-ray left hip to confirm no significant change in fracture or hardware position given patient's reported pain. Also defer to medical team for further evaluation of her abdomen. In the meantime I recommend continued out of bed with physical therapy and assistance and assistive device as necessary, wbat LLE. Recommended continued DVT prophylaxis mechanical and chemical. Recommend continued analgesic medication. Recommend continued [facility] facility placement planning. Recommend incentive spirometer every hour when awake. and daughter questions answered they verbalized understanding agreement with plan. Upon discharge patient may follow-up with the orthopedic clinic in 7-10 days for staple removal. She may follow-up sooner as needed. Qualifiers: Encounter type: subsequent encounter Fracture type: closed Fracture alignment: nondisplaced
[2019-01-15] MEDS: ACETAMINOPHEN 325 MG TABLET PO PRN (11:12)
[2019-01-15] MEDS ORDERED: IBUPROFEN 600 MG TABLET PO PRN (12:11)
--- NOTE | 2019-01-15 14:46 | Discharge Plan ---
"Discharge Plan for SNF / REA - Discharge Plan And Transition Orders Disposition: 03 SNF DC/Xfer Condition: Fair Allergies and Adverse Reactions: Allergies Allergy/AdvReac Type Severity Reaction Status Date / Time No Known Drug Allergies Allergy Verified 01/10/19 17:59 - SNF / SKILLED NURSING Transition Orders Admit to (Facility): [facility] Discharge Diagnosis: 1) Intertrochanteric left hip fracture, repaired 2) Accidental fall 3) Dementia 4) Hx of 5) Anemia, Iron and B12 deficiency 6) Chronic back pain 7) Code Status: Full Code Medicare Certification Statement: I certify that Post Hospital shelter care is medically necessary on a continuing basis for any of the conditions for which she/he is receiving care during hospitalization. Notify PCP of admission and forward orders to primary provider for signature. Weight on admission and: Weekly Call PCP immediately if weight increases by: 10 kg Other Notification Orders: Call PCP immediately if patient develops dyspnea, chest pain/tightness or edema. House Bowel Program: Yes Additional Bowel Program Orders: If no BM after 2 days, nurse may give M.O.M. 30ml PO PRN and/or ducolax Supp 1 NH and/or IVETT 250mg P.O., and/or senna 1-2 tabs PO. On day 3 nurse may give re peat above order until residents constipation is resolved. Annual Influenza Vaccine (between Jul 04 and January 31): Yes Two-step PPD per [facility] [phone] or approved exception documents: Yes Treatments & Other Orders: Daily PT and OT Medication Orders: PLEASE REFER TO THE DISCHARGE MEDICATION LIST. Insulin Orders?: No - Medications New Prescriptions: Acetaminophen [Tylenol] 650 mg PO Q4HR PRN #30 tablet PRN Reason: Pain 1 to 4 Ibuprofen [Motrin] 600 mg PO Q6HR PRN #30 tablet PRN Reason: Joint Pain Aspirin [Gerardo] 325 mg PO DAILYWM #30 tablet Calcium Carbonate [Tums (Calcium Carbonate 500mg)] 500 mg PO BID #60 tablet Cholecalciferol (Vitamin D3) [Vitamin D] 2,000 unit PO DAILY #30 capsule Ferrous Gluconate [Iron] 240 mg PO DAILY #30 tablet Polyethylene Glycol 3350 [Miralax] 17 gm PO DAILY #15 packet QUEtiapine [SEROquel] 25 mg PO 1900 PRN #30 tablet PRN Reason: Insomnia - Diet Type: Geriatric Texture: Regular Liquids: Thin May have monthly special meal: Yes - Therapies | Activity Therapy: Evaluation | Treat if indicated: PT, OT Rehabilitation Potential: Maximize functional status Activity: Activity as Tolerated Weight Bearing: Full Weight Assistance Devices: Walker Follow Up: See your PCP after DCh from [facility]"
[2019-01-15 15:33] VITALS: BP 153/86
--- NOTE | 2019-01-15 18:13 | XRAY Report ---
Reason: left it femur fx, s/p surgery Procedure Date: 01/15/2019 Accession Number: [id number] / [id number] Procedure: XR - Hip w/Pelvis 2-3V LT CPT Code: FULL RESULT: EXAM: LEFT HIP RADIOGRAPHY EXAM DATE: 01/15/2019 11:14 AM. CLINICAL HISTORY: Left femur fx, s/p surgery. COMPARISON: HIP W/PELVIS 2-3V LT 01/11/2019 4:37 PM OR C-ARM PROCEDURE 01/11/2019 4:37 PM. TECHNIQUE: 2 views. FINDINGS: Bones: There is been internal fixation of the proximal left femur which is again seen. Alignment and position are improved. Degenerative osteophyte formation. Joints: Normal alignment. Joint space narrowing. Partly visualized are changes from lower lumbar/sacral fusion. Soft Tissues: Soft tissue edema. Vascular calcifications. IMPRESSION: 1. Status post ORIF of proximal left femur. RADIA
[2019-01-15] MEDS ORDERED: QUEtiapine 25 MG TABLET PO SCH (19:00)
--- NOTE | 2019-01-21 01:22 | DISCHARGE SUMMARY ---
Physician: Eboni Rojas MD DATE OF ADMISSION: 01/10/2019 DATE OF DISCHARGE: 01/15/2019 HISTORY OF PRESENT ILLNESS: This is an 78-year-old white female who has a history of dementia, hypocalcemia for which she takes vitamin D and calcium, and chronic back pain. The patient usually walks with a walker or a cane and sustained a fall onto concrete during a walk. She was brought to the emergency room, was confused, and screaming in pain when the left leg was moved. X-ray found a left intratrochanteric femur fracture, and she was admitted for surgery. HOSPITAL COURSE AND DISCHARGE DIAGNOSES 1. Intertrochanteric left hip fracture. The patient underwent successful operation of the left hip by Dr. Carvajal. She was able to start physical therapy and needed pain medications for hip pain. There was a recent DEXA scan showing no osteoporosis. She was eventually discharged to a custodial facility for further rehab. 2. Accidental fall. The patient's history does not include frequent falls; however, she did have a history of "anxiety about something happening like falling" when she would walk. At this event, she was using a cane which sunk into the gravel, she lost her balance and fell onto the cement and had immediate left hip pain. 3. Dementia. The patient has had worsening of memory over the past few months. She had an MRI done one month ago for evaluating this and was referred to [facility] for consultation. Anxiety makes the memory loss worse, and she gets angry with her because she feels that he is not telling her things, but it is because she cannot remember their conversations. She had declined Donepezil for memory loss treatment because of the side effect and cost. She had been put on Citalopram to help with the anxiety plus memory loss, but became sleepier with this, was sleeping all day long and had worsened balance. It was not helping with the anxiety and it was stopped two weeks before this admission. Her affect then seemed better, but she was always fearful of falling. 4. History of "Sundowning" (which occurred while here). In her postop course, she did require several doses of narcotic, and this exacerbated the confusion, especially in the evening hours, and during her first postoperative night, she had no sleep and a restless night. She susequently required scheduled doses of Seroquel in the evening, which helped for preventing the agitation and helped her sleep. Zyprexa did not help. The dose of Seroquel 50 mg was decreased down to 25 mg and then only ordered p.r.n. on her prescription orders at discharge. 5. Anemia, iron and B12 deficiency. The patient's hemoglobin was 13.5 on admission, which decreased down to 9.2, partially due to hemodilution from IV fluids. Her iron, B12 and folate levels were tested and she was low in iron and started on oral iron replacement, and also low in B12 and received a B12 shot IM x1. 6. Chronic back pain. The daughter reported that this was from prior trouble and it was treated along with the pain of this hip surgery. 7. CODE STATUS: FULL CODE. LABS AND IMAGING: Reviewed and summarized above. ALLERGIES: None. MEDICATIONS AT THE TIME OF DISCHARGE 1. Tylenol 650 mg q.4 hours p.r.n. pain. 2. Motrin 600 mg q.6 hours p.r.n. pain. 3. Adult dose aspirin daily. 4. Calcium carbonate 500 mg b.i.d. 5. Vitamin D3 2000 units orally daily. 6. Ferrous gluconate 240 mg daily. 7. MiraLax 1 packet daily. 8. Seroquel 25 mg every evening p.r.n. insomnia. CONDITION AT DISCHARGE: Stable, except for memory. PHYSICAL EXAMINATION VITAL SIGNS: Blood pressure 150/80, heart rate 80 in sinus rhythm, afebrile, room air oxygen saturation 100%. HEENT: Unremarkable. NECK: Without JVD. CHEST: Clear. HEART: Heart sounds are normal, no murmur. ABDOMEN: Soft, nontender. EXTREMITIES: No edema. NEUROLOGIC: No focal signs, but confusion present. FOLLOWUP: This will be determined after her stay at [facility]. CODE STATUS: FULL CODE. Time required to complete this entire discharge, SNF orders, prescriptions, chart review, discussion with her : 60 minutes. cc: Ethel Jensen DO TD: 01/20/2019 15:29 MTDD
--- NOTE | 2019-01-22 15:45 | XRAY Report ---
Reason: Left Hip Fracture Procedure Date: 01/11/2019 Accession Number: [id number] / [id number] Procedure: [place] - OR C-Arm Procedure CPT Code: FULL RESULT: EXAM: FLUOROSCOPIC GUIDANCE EXAM DATE: 01/11/2019 06:09 PM. CLINICAL HISTORY: Left Hip Fracture. COMPARISON: HIP W/PELVIS 2-3V LT 01/15/2019 10:57 AM HIP W/PELVIS 2-3V LT 01/11/2019 4:37 PM. FINDINGS: Spot films demonstrate left intertrochanteric fracture fixation. IMPRESSION: Fluoroscopic guidance provided for fracture fixation. Total fluoroscopy time: 1.8 minutes. Number of images: 2. RADIA
== END 2019-01-15 15:39 | DRG 481 ==
LOC: EDBD → EDUNIT# → ED 17:46 → MS3 19:52
PROVIDERS: ADMIT Specialist; ATTEND Internal Medicine
PROC: 0QS736Z Reposition Left Upper Femur with Intramedullary Internal Fixation Device, Percutaneous Approach (ICD-10-PCS; principal; 2019-01-11 16:00)
DX: S72.142A Displaced intertrochanteric fracture of left femur, initial encounter for closed fracture (principal); F05 Delirium due to known physiological condition; W01.0XXA Fall on same level from slipping, tripping and stumbling without subsequent striking against object, initial encounter; Y93.01 Activity, walking, marching and hiking; F03.90 Unspecified dementia, unspecified severity, without behavioral disturbance, psychotic disturbance, mood disturbance, and anxiety; F41.9 Anxiety disorder, unspecified; M81.0 Age-related osteoporosis without current pathological fracture; M19.90 Unspecified osteoarthritis, unspecified site; N18.3 Chronic kidney disease, stage 3 (moderate); E83.51 Hypocalcemia; G89.29 Other chronic pain; M54.89 Other dorsalgia; D50.9 Iron deficiency anemia, unspecified; E53.8 Deficiency of other specified B group vitamins; Z87.440 Personal history of urinary (tract) infections; Z79.899 Other long term (current) drug therapy
CPT/HCPCS: 36415; 71045; 73502; 80048; 80053; 81003; 82607; 82746; 83540; 83690; 84466; 85025; 85610; 85730; 86850; 86900; 86901; 96361; 96374; 97110; 97162; 97166; 97530; 99284; A9270; C1713; J0131; J0690; J1170; J7120; 51702; 81001; 82272; 87086

== ENCOUNTER 2019-01-15 15:48 | Outpatient (CLI) | payer MEDICARE | END 2019-01-15 15:49 | LOC: EMS 15:48 | PROVIDERS: ATTEND Surgery | DX: S72.002A Fracture of unspecified part of neck of left femur, initial encounter for closed fracture (principal); R41.0 Disorientation, unspecified; Z98.890 Other specified postprocedural states | CPT/HCPCS: A0425; A0428 ==

== ENCOUNTER 2019-02-05 15:45 | Outpatient (CLI) | payer MEDICARE ==
[2019-02-05 19:02] LABS: BILIRUBIN,URINE NEGATIVE (NEGATIVE); GLUCOSE, URINE (UA) NEGATIVE (NEGATIVE); KETONES,URINE (UA) NEGATIVE (NEGATIVE); LEUKOCYTE ESTERASE, URINE SMALL (NEGATIVE); NITRITE,URINE POSITIVE (NEGATIVE); OCCULT BLOOD,URINE NEGATIVE (NEGATIVE); PH,URINE 6.5 PH (5.0-7.5); PROTEIN,URINE NEGATIVE (NEGATIVE); UROBILINOGEN,URINE 0.2 (NORMAL) E.U./dL (NORMAL)
[2019-02-05 19:13] LABS: BACTERIA,URINE Many /HPF (None Seen); CLARITY,URINE CLEAR (CLEAR); RBC,URINE None Seen /HPF (0-5); SQUAMOUS EPITHELIAL CELL,UR NONE SEEN (<= Few)
== END 2019-02-05 23:59 | disposition home or self-care (01) ==
LOC: LAB.R 15:45
PROVIDERS: ATTEND Physician Assistant
DX: N39.0 Urinary tract infection, site not specified (principal)
CPT/HCPCS: 81001; 87077; 87086; 87181

== ENCOUNTER 2019-02-16 08:00 | Outpatient (CLI) | payer MEDICARE ==
[2019-02-16 16:48] LABS: BILIRUBIN,URINE NEGATIVE (NEGATIVE); GLUCOSE, URINE (UA) NEGATIVE (NEGATIVE); KETONES,URINE (UA) NEGATIVE (NEGATIVE); LEUKOCYTE ESTERASE, URINE TRACE (NEGATIVE); NITRITE,URINE NEGATIVE (NEGATIVE); OCCULT BLOOD,URINE NEGATIVE (NEGATIVE); PH,URINE 5.5 PH (5.0-7.5); PROTEIN,URINE NEGATIVE (NEGATIVE); UROBILINOGEN,URINE 0.2 (NORMAL) E.U./dL (NORMAL)
[2019-02-16 16:52] LABS: CLARITY,URINE HAZY (CLEAR)
[2019-02-16 16:53] LABS: BACTERIA,URINE Many /HPF (None Seen); RBC,URINE None Seen /HPF (0-5); SQUAMOUS EPITHELIAL CELL,UR RARE Squamous (<= Few)
== END 2019-02-16 23:59 | disposition home or self-care (01) ==
LOC: LAB.R 08:00
PROVIDERS: ATTEND Physician Assistant
DX: N39.0 Urinary tract infection, site not specified (principal)
CPT/HCPCS: 81001

== ENCOUNTER 2019-04-12 08:00 | Outpatient (CLI) | payer MEDICARE ==
[2019-04-12 17:42] LABS: BILIRUBIN,URINE NEGATIVE (NEGATIVE); GLUCOSE, URINE (UA) NEGATIVE (NEGATIVE); KETONES,URINE (UA) NEGATIVE (NEGATIVE); LEUKOCYTE ESTERASE, URINE SMALL (NEGATIVE); NITRITE,URINE POSITIVE (NEGATIVE); OCCULT BLOOD,URINE NEGATIVE (NEGATIVE); PH,URINE 5.5 PH (5.0-7.5); PROTEIN,URINE NEGATIVE (NEGATIVE); UROBILINOGEN,URINE 0.2 (NORMAL) E.U./dL (NORMAL)
[2019-04-12 17:49] LABS: CLARITY,URINE HAZY (CLEAR)
[2019-04-12 17:55] LABS: BACTERIA,URINE Many /HPF (None Seen); RBC,URINE 0-5 /HPF (0-5); SQUAMOUS EPITHELIAL CELL,UR FEW Squamous (<= Few)
== END 2019-04-12 23:59 | disposition home or self-care (01) ==
LOC: LAB.R 08:00
PROVIDERS: ATTEND Physician Assistant
DX: N39.0 Urinary tract infection, site not specified (principal)
CPT/HCPCS: 81001

== ENCOUNTER 2019-06-03 | Outpatient (CLI) | payer MEDICARE | END 2019-06-03 23:59 | disposition home or self-care (01) | DX: N39.0 Urinary tract infection, site not specified (principal) | CPT/HCPCS: 87077; 87086; 87181 ==

== ENCOUNTER 2019-12-03 08:30 | Outpatient (CLI) | payer MEDICARE ==
[2019-12-03 09:38] LABS: BILIRUBIN,URINE NEGATIVE (NEGATIVE); GLUCOSE, URINE (UA) NEGATIVE (NEGATIVE); KETONES,URINE (UA) NEGATIVE (NEGATIVE); LEUKOCYTE ESTERASE, URINE MODERATE (NEGATIVE); NITRITE,URINE POSITIVE (NEGATIVE); OCCULT BLOOD,URINE TRACE-INTA (NEGATIVE); PH,URINE 5.5 PH (5.0-7.5); PROTEIN,URINE NEGATIVE (NEGATIVE); UROBILINOGEN,URINE 0.2 (NORMAL) E.U./dL (NORMAL)
[2019-12-03 09:42] LABS: CLARITY,URINE CLOUDY (CLEAR)
[2019-12-03 09:54] LABS: AMORPHOUS SEDIMENT,UR Marked /LPF; BACTERIA,URINE Many /HPF (None Seen); CASTS, URINE 0-2 Hyaline Casts /LPF; EPITHELIAL CELLS,UR MOD Transitional /HPF (<= Few); RBC,URINE 0-5 /HPF (0-5); SQUAMOUS EPITHELIAL CELL,UR MANY Squamous (<= Few); YEAST,URINE PRESENT
== END 2019-12-03 23:59 | disposition home or self-care (01) ==
LOC: LAB.R 08:30
PROVIDERS: ATTEND Family Medicine
DX: N39.0 Urinary tract infection, site not specified (principal)
CPT/HCPCS: 81001; 81003; 87086

== ENCOUNTER 2019-12-16 10:17 | Outpatient (CLI) | payer MEDICARE ==
[2019-12-16 18:44] LABS: BILIRUBIN,URINE NEGATIVE (NEGATIVE); GLUCOSE, URINE (UA) NEGATIVE (NEGATIVE); KETONES,URINE (UA) NEGATIVE (NEGATIVE); LEUKOCYTE ESTERASE, URINE TRACE (NEGATIVE); NITRITE,URINE POSITIVE (NEGATIVE); OCCULT BLOOD,URINE NEGATIVE (NEGATIVE); PH,URINE 5.5 PH (5.0-7.5); PROTEIN,URINE NEGATIVE (NEGATIVE); UROBILINOGEN,URINE 0.2 (NORMAL) E.U./dL (NORMAL)
[2019-12-16 19:10] LABS: CLARITY,URINE CLEAR (CLEAR)
[2019-12-16 19:11] LABS: BACTERIA,URINE Many /HPF (None Seen); RBC,URINE 0-5 /HPF (0-5); SQUAMOUS EPITHELIAL CELL,UR MOD Squamous (<= Few)
== END 2019-12-16 23:59 | disposition home or self-care (01) ==
LOC: LAB.WCP 10:17
PROVIDERS: ATTEND Family Medicine
DX: N39.0 Urinary tract infection, site not specified (principal)
CPT/HCPCS: 81001; 81003; 87086